=== PATIENT | male | born 1960 ===

== ENCOUNTER → 2020-03-03 13:36 | Outpatient (BNVA) | payer MEDICARE, MEDICAID, SELFPAY | PROVIDERS: PCP Internal Medicine; Referring Provider Internal Medicine; Visit Provider Internal Medicine | DX: I25.10 Atherosclerotic heart disease of native coronary artery without angina pectoris (principal); I10 Essential (primary) hypertension; E78.2 Mixed hyperlipidemia; F17.200 Nicotine dependence, unspecified, uncomplicated; I25.2 Old myocardial infarction; Z95.5 Presence of coronary angioplasty implant and graft; Z71.6 Tobacco abuse counseling; Z79.82 Long term (current) use of aspirin; Z79.899 Other long term (current) drug therapy | CPT/HCPCS: 99214 ==

== ENCOUNTER 2020-06-29 12:42 | Emergency (ER) | payer MEDICARE, MEDICAID, SELFPAY ==
[2020-06-29 12:43] VITALS: BP 150/90; RESP 18; TEMP 36.7; BMI 32.1
--- NOTE | 2020-06-29 13:52 | XR_ITS ---
EXAMINATION: XR FOOT, LEFT CLINICAL INFORMATION: Left foot pain. COMPARISON: None TECHNIQUE: AP, lateral, and oblique views of the left foot. FINDINGS: There is no acute fracture or dislocation. The tarsal bones are normally aligned. There is a small plantar calcaneal spur. The soft tissues are unremarkable. XR/XR foot LT 2V IMPRESSION: Small degenerative plantar calcaneal spur. Mild soft tissue swelling. No acute abnormality.
--- NOTE | 2020-06-29 13:52 | XR_ITS ---
EXAMINATION: XR ANKLE, LEFT CLINICAL INFORMATION: Ankle pain. COMPARISON: None TECHNIQUE: AP, lateral, and mortise views of the left ankle. FINDINGS: There is no acute fracture or dislocation. The tarsal bones are normally aligned. There is a small plantar calcaneal spur. The soft tissues are unremarkable. XR/XR ankle LT min 3V IMPRESSION: Small degenerative plantar calcaneal spur.
--- NOTE | 2020-06-29 13:52 | XR_ITS ---
EXAMINATION: XR LUMBOSACRAL SPINE CLINICAL INFORMATION: Low back pain radiating down leg COMPARISON: Previous x-ray March 2014 TECHNIQUE: Three views of the lumbosacral spine. FINDINGS: Bone alignment is normal. No fracture or dislocation is seen. There is multilevel degenerative spondylosis. There is mild degenerative disc disease at L2-L3. There is lower lumbar spine facet arthritis. XR/XR lumbar spine 2-3V IMPRESSION: Degenerative changes.
--- NOTE | 2020-06-29 13:54 | PC.NURSE ---
ASSISTED PROVIDER WITH RECTAL EXAM. PT TOLERATED PROCEDURE WELL.
--- NOTE | 2020-06-29 14:11 | ED_ITS ---
HPI - General Adult General Chief complaint: Extremity Problem Stated complaint: L FOOT NUMBNESS Source: patient Mode of arrival: ambulatory Limitations: no limitations History of Present Illness HPI narrative: Patient presents to ED for left foot numbness and pain for the past 3 days. Patient denies any recent trauma, slurred speech, loss of vision, paralysis of extremities, coughing, fever, chills, dizziness, chest pain, shortness of breath, or headache. Patient states history of severe sciatica with back pain radiating down leg with the past 3 days with left foot numbness. Patient denies any urinary/bowel incontinence. Patient denies inability to walk. Patient denies any dragging of feet. Related Data Home Medications Medication Instructions Recorded Confirmed albuterol sulfate 90 mcg/actuation INHALATION 03/03/20 03/03/20 aerosol inhaler aspirin 81 mg tablet,delayed 81 mg PO DAILY 03/03/20 03/03/20 release atorvastatin 80 mg tablet 80 mg PO BEDTIME 03/03/20 03/03/20 lisinopril 2.5 mg tablet 2.5 mg PO DAILY 03/03/20 03/03/20 metoprolol succinate 50 mg 50 mg PO DAILY 03/03/20 03/03/20 tablet,extended release 24 hr tiotropium bromide 2.5 INHALATION 03/03/20 03/03/20 mcg/actuation mist for inhalation Previous Rx's Medication Instructions Recorded oxycodone-acetaminophen [Percocet] 1 tab PO TID PRN #9 tab 06/29/20 prednisone 40 mg PO DAILY #10 tab 06/29/20 Allergies Allergy/AdvReac Type Severity Reaction Status Date / Time codeine [CODEINE] Allergy Unknown STOMACH Unverified 02/13/20 14:43 UPSET Review of Systems Review of Systems: Yes all other systems are reviewed and are negative Constitutional: Constitutional: Reports as per HPI and Reports no additional constitutional complaints Eyes: Eyes: Reports as per HPI and Reports no additional eye complaints ENT: Reports system reviewed and no additional complaints, except as documented and Reports as per HPI Cardiovascular: Cardiovascular: Reports as per HPI and Reports no additional cardiovascular complaints Respiratory: Respiratory: Reports as per HPI and Reports no additional respiratory complaints Gastrointestinal: Gastrointestinal: Reports as per HPI and Reports no additional gastrointestinal complaints Musculoskeletal: Musculoskeletal: Reports no additional musculoskeletal complaints, Reports as per HPI and Reports back pain Comments: Left foot/ankle pain/numbness Neurologic: Reports system reviewed and no additional complaints, except as documented and Reports as per HPI Psychiatric: Psychiatric: Reports no additional psychiatric complaints and Reports as per HPI [facility] Past Medical History Medical History Atherosclerotic cardiovascular disease COPD (chronic obstructive pulmonary disease) Essential hypertension Mixed hyperlipidemia Smoking Surgical History History of cardiac catheterization Stented coronary artery Family History Family History Father Hypertension Coronary artery disease Mother No problems noted. Social History Social History (Updated 03/03/20 @ 14:01 by JANETTE Estrada) Smoking Status: Current every day smoker Packs Per Day: 1 Cigarettes Per Day: 20.0 Advance Directives: No Advance Directives Information Provided: Yes Physical Exam Vital Signs: Vital Signs: Last Vital Signs Temp 98.1 F 06/29/20 12:43 Resp 18 06/29/20 12:43 BP 150/90 H 06/29/20 12:43 Body Mass Index 32.1 Const: General: cooperative, healthy appearing, comfortable, no acute distress, well developed, alert, awake and Physically active HENMT: Head: Yes normal to inspection, Yes No palpable skull fracture present, Yes normocephalic, Yes atraumatic and Yes abrasion Eyes: General: appearance normal, both eyes and all related structures Neck: Neck: Yes normal visual inspection, Yes full ROM, Yes no lymphadenopathy, Yes no meningeal signs, Yes trachea midline, Yes supple and No tender Chest: Chest palpation & inspection: normal inspection of the chest and normal palpation of entire chest wall Resp: Effort & Inspection: normal respiratory effort and able to speak in complete sentences Auscultation: clear to auscultation bilaterally Cardio: Jugular venous distension: no JVD Heart sounds: S1 normal heart sound present and S2 normal heart sound present GI: Inspection: Yes normal to inspection and No abdominal wall ecchymosis Palpation (GI): Soft to palpation, not firm, nontender, no guarding and not rigid : General: No CVA tenderness and Yes no CVA tenderness Back/Spine/Pelvis: Other: Rectal exam shows great anal sphincter tone around my finger. Patient has good perineum saddle sensation Back: no CVA tenderness, No CVA tenderness and back tenderness (Positive for lumbar/sacral tenderness on palpation) Skin: General skin exam: no rashes or lesions noted and elasticity normal Neuro: Other: Negative for slurred speech. Negative for facial droop. Negative pronator drift. Negative for foot dragging or footdrop on ambulation. All extremities strength is equal and intact. General: gait normal, no meningeal signs and CN's II-XI intact bilaterally Extrem: Other: Left lower extremity; negative for bluish/red discoloration of ankles/foot/leg/thigh. Left lower extremity has normal temperature. Positive for palpable pulses on feet. Negative for any wounds/ulcers on the feet. NEgative for any calf pain. Right lower extremity: normal. motor/neuro/fast exam is intact. Both extremities motor, neuro, and vascular exam is intact. Psych: Appearance: grossly normal, well kempt and not disheveled Course Course Course Narrative: Physical exam does not indicate cord compression. Patient has good anal tone and negative for urinary/bowel incontinence. Patient able to tell me which toe I was touching on his left lower extremity. Patient states back pain radiating down leg. Sciatica exacerbation patient's last x-ray was 6 years ago. Patient will have x-ray, Toradol, and prednisone ordered. Due to history of smoking and cholesterol patient has head CTs to make sure there is no stroke although very unlikely and patient is already out the window if it is a stroke. No indication for emergent spine MRI. Once again not suspecting cord compression or epidural abscess. Patient denies any drug use. Reevaluation(s) Reevaluation #1: Patient foot x-ray positive for plantar calcaneal spur. Lumbar x-ray positive for degenerative disc disease. Head CT negative for stroke. Patient educated that presently there is no emergent indication for MRI. Informed physical exam did not indicate cord compression or epidural abscess. Patient states he can follow-up outpatient PCP for outpatient MRI for nerve impingement if necessary by PCP. Physical exam does not indicate DVT or arterial occlusion. Head CT shows meningioma and patient made aware this. Patient will follow-up with PCP. patient states he takes percocet in the past without any reaction Time: 15:16 Medical Decision Making MDM Narrative Medical decision making narrative: Sciatica. Degenerative disc disease Discharge Plan Discharge Clinical Impression: Degenerative disc disease at L5-S1 level, Sciatica, Heel spur Patient Disposition: Home, Self-Care Instructions: Sciatica (ED), Lumbar Radiculopathy (ED), Degenerative Disc D isease (ED), Heel Spur (ED) Additional Instructions: Return to the ED immediately for worsening back pain, dragging of lower extremity, foot drop, urinary/bowel incontinence, slurred speech, loss of vision, headache, dizziness, fever, chills, abdominal pain, paralysis of extremities, or any other concerning symptoms. Head CT scan negative for stroke. Lumbar x-ray positive for degenerative disc disease. Head CT scan positive for benign meningioma. Ankle and foot x-ray positive for calcaneal spur. Please follow-up with PCP for outpatient MRI of spine. Prescriptions: New prednisone 20 mg tablet 40 mg PO DAILY Qty: 10 RF: 0 oxycodone-acetaminophen [Percocet] 5-325 mg tablet 1 tab PO TID PRN (Reason: pain) Qty: 9 RF: 0 No Action atorvastatin 80 mg tablet 80 mg PO BEDTIME RF: 0 aspirin 81 mg tablet,delayed release (DR/EC) 81 mg PO DAILY RF: 0 metoprolol succinate 50 mg tablet extended release 24 hr 50 mg PO DAILY RF: 0 lisinopril 2.5 mg tablet 2.5 mg PO DAILY RF: 0 albuterol sulfate 90 mcg/actuation HFA aerosol inhaler inhalation RF: 0 Spiriva Respimat 2.5 mcg/actuation mist inhalation RF: 0 Interventions: ED Discharge Assessment Last Done: 06/29/20 15:50 Discharge Date/Time: 06/29/20 15:51
--- NOTE | 2020-06-29 14:12 | CT_ITS ---
EXAMINATION: CT HEAD WITHOUT CONTRAST CLINICAL INFORMATION: Foot numbness. COMPARISON: None TECHNIQUE: Contiguous axial imaging was performed from the skull base to vertex without intravenous administration of contrast. This CT examination was performed using dose optimization techniques as appropriate, variously including the following: *Automated exposure control *Adjustment of mA and/or kV according to patient size (this includes techniques or standardized protocols for targeted exams where dose is matched to indication/reason for exam; i.e. extremities or head) *Use of iterative reconstruction technique DLP: 751 mGy-cm FINDINGS: There is no evidence of acute intracranial hemorrhage or territorial infarction. No abnormal mass effect or midline shift is seen. Desai to white matter differentiation is well preserved. No extra-axial fluid collections are identified. There is small right parafalcine calcified 6 mm lesion likely calcified meningioma. There is no mass effect or The ventricles are normal in size. There is no abnormal attenuation within the brain parenchyma. The osseous structures and soft tissues are normal. The mastoid air cells and visualized portions of the paranasal sinuses are well aerated. CT/CT head/brain wo con IMPRESSION: No acute intracranial process seen. There is a 6 mm right parafalcine likely calcified meningioma.
[2020-06-29] MEDS: predniSONE 20 MG TABLET 60 MG PO (14:14)
[2020-06-29] MEDS: Ketorolac Tromethamine 30 MG/ML VIAL IM (14:14)
== END 2020-06-29 15:51 | disposition home or self-care (01) ==
PROVIDERS: Emergency Provider Emergency Medicine
DX: M51.17 Intervertebral disc disorders with radiculopathy, lumbosacral region (principal); M77.32 Calcaneal spur, left foot; I10 Essential (primary) hypertension; F17.210 Nicotine dependence, cigarettes, uncomplicated
CPT/HCPCS: 70450; 72100; 73610; 73620; 96372; 99283; 99284; J1885

== ENCOUNTER 2020-07-15 19:27 | Outpatient (REF) | payer MEDICARE, MEDICAID, SELFPAY ==
--- NOTE | ~2020-07-15 | MR_ITS ---
EXAMINATION: MR LUMBAR SPINE WITHOUT CONTRAST CLINICAL INFORMATION: Lumbago with sciatica left side. COMPARISON: Plain films of the lumbar spine 06/29/2020. TECHNIQUE: MRI of the lumbar spine was obtained using routine sequences without contrast. FINDINGS: VERTEBRAL BODIES AND PARASPINAL STRUCTURES: There is straightening of the normal lumbar lordosis, with a mild retrolisthesis of L2 on L3. There is narrowing of intervertebral disc height with loss of signal at L2-L3, L3-L4 and L4-L5. Vertebral body heights are maintained and there are no acute fractures. There are degenerative endplate contour changes at multiple levels. Fatty endplate signal changes are seen at L2-L3 anteriorly and at L3-L4 and L4-L5 posteriorly. Overall, marrow signal is homogenous. The infrarenal abdominal aorta is slightly ectatic, and has a caliber of 2.4 cm just proximal to the bifurcation. The visualized pelvic structures are unremarkable. CONUS MEDULLARIS AND CAUDA EQUINA: Normal, terminating at the level of L1. The lower thoracic spinal cord appears normal. The cauda equina nerve roots and filum terminale appear normal. SPINAL LEVELS: L1-L2: There is mild bilateral facet arthropathy. Disc contour is normal. There is no central stenosis and the neural foramina are patent. L2-L3: There is mild to moderate bilateral facet arthropathy. There is a broad-based posterior disc protrusion extending into the inferior neural foramina bilaterally without definite exiting nerve root impingement. However, there is narrowing of the bilateral subarticular recesses, with likely impingement on the traversing L3 nerve roots. There is moderate central stenosis. L3-L4: There is moderate bilateral facet arthropathy. There is a broad-based posterior disc protrusion with an extruded component extending behind the body of L4 just to the right of midline. There is narrowing of the bilateral subarticular recesses, and there is likely impingement on the traversing L4 nerve roots. There is moderate central stenosis. L4-L5: There is severe bilateral facet arthropathy with ligamenta flava hypertrophy and facet joint effusions. There is an extruded disc component extending caudad behind the body of L5 on the left, with narrowing of the left subarticular recess and compression and posterior displacement of the traversing left L5 nerve root. There are small inferior foraminal disc protrusions without definite exiting nerve root impingement. There is mass effect on the thecal sac and there is moderate to severe central stenosis. L5-S1: There is severe bilateral facet arthropathy. The extruded component from the L4-L5 intervertebral disc extends into the left subarticular recess, and displaces the traversing left S1 nerve root posteriorly. There is narrowing of the left lateral recess of L4. There is also distortion of the ventral thecal sac. There is no central stenosis. MR/MR lumbar spine wo con IMPRESSION: 1. There is severe facet arthropathy at L4-L5 and there is a large extruded disc component extending caudad on the left behind the body of L5, the left subarticular recess at L5-S1 and into the left lateral recess of L5. There is mass effect on the traversing L5 and S1 nerve roots on the left. There is moderate to severe central stenosis at L4-L5. 2. At L3-L4 there is a posterior disc protrusion with a small extruded component behind the body of L4. The bilateral subarticular recesses with likely impingement on the traversing L4 nerve roots. There is moderate central stenosis. 3. At L2-L3 there is a broad-based posterior disc protrusion, with narrowing of the bilateral subarticular recesses with impingement on the traversing L3 nerve roots. There is moderate central stenosis.
== END 2020-07-15 19:28 | disposition home or self-care (01) ==
LOC: HO.MRI 19:27
PROVIDERS: Visit Provider Nurse Practitioner Primary Care
DX: M54.42 Lumbago with sciatica, left side (principal)
CPT/HCPCS: 72148

== ENCOUNTER 2020-08-07 07:25 | Outpatient (REF) | payer MEDICARE, MEDICAID, SELFPAY ==
--- NOTE | ~2020-08-07 | CT_ITS ---
EXAMINATION: CT CHEST SCREENING CLINICAL INFORMATION: Nicotine dependence. COMPARISON: CT chest 07/01/2019 TECHNIQUE: Multidetector volumetric CT imaging of the chest is performed without contrast using low dose technique. Additional 2D coronal and sagittal reformatted images and axial 3D maximum intensity projection (MIP) images are generated on the CT workstation. This CT examination was performed using dose optimization techniques as appropriate, variously including the following: *Automated exposure control *Adjustment of mA and/or kV according to patient size (this includes techniques or standardized protocols for targeted exams where dose is matched to indication/reason for exam; i.e. extremities or head) *Use of iterative reconstruction technique DLP: 83 mGy-cm FINDINGS: LUNGS: The lungs are well expanded without any acute pneumonic process. There is a 2 mm nodule left lower lobe adjacent to the major fissure axial image 309/6, stable. No additional pulmonary nodules seen. Mild plate-like atelectatic changes as seen in the right middle lobe. MEDIASTINUM: The thyroid lobes are symmetric and normal. The central trachea and the bronchi are widely patent. The heart size and the great vessels are normal caliber. No abnormal size mediastinal or hilar lymph nodes seen. There are coronary artery calcifications present. PLEURA: There is no pleural effusion. No pleural mass or thickening. AXILLA: No lymphadenopathy. UPPER ABDOMEN: Visualized liver, spleen, pancreas and bilateral adrenal glands are unremarkable. OSSEOUS STRUCTURES: No lytic or sclerotic process seen. CT/CT lung screening IMPRESSION: Stable 2 mm nodule left lower lobe. Coronary artery calcification. ASSESSMENT: Lung-RADS category 2: Benign RECOMMENDATION: Low dose annual CT chest.
== END 2020-08-07 07:26 | disposition home or self-care (01) ==
LOC: HO.CT 07:25
PROVIDERS: Visit Provider Physician Assistant Medical
DX: Z12.2 Encounter for screening for malignant neoplasm of respiratory organs (principal); F17.210 Nicotine dependence, cigarettes, uncomplicated
CPT/HCPCS: 71271

== ENCOUNTER 2020-09-10 10:00 | Outpatient (RCR) | payer MEDICARE, MEDICAID, SELFPAY | END 2020-11-24 08:00 | disposition home or self-care (01) | LOC: HO.PT 10:00 | PROVIDERS: PCP Nurse Practitioner Family; Visit Provider Physician Assistant | DX: M54.5 Low back pain (principal); M51.36 Other intervertebral disc degeneration, lumbar region; Z98.890 Other specified postprocedural states | CPT/HCPCS: 97110; 97112; 97162; 97530 ==

== ENCOUNTER 2020-12-03 06:05 | Outpatient (REF) | payer MEDICARE, MEDICAID, SELFPAY ==
[2020-12-03 06:38] LABS: MANUAL DIFF FLAG NO
[2020-12-03 06:41] LABS: Basophils Percent Auto 0.4 % (0-2); Eosinophils Absolute Auto 0.1 X10*3/uL (0.0-0.4); Eosinophils Percent Auto 1.9 % (0-4); Hematocrit 48.2 % (42-52); Hemoglobin 16.4 g/dl (14.0-18.0); Imm Gran Abs Auto 0.07 X10*3/uL (0.00-0.03); Imm Gran Pct Auto 0.9 % (0.0-0.4); Lymphocytes Absolute Auto 2.1 X10*3/uL (1.2-4.9); Lymphocytes Percent Auto 27.9 % (20-40); Mean Corpuscular Hemoglobin 31.4 pg (27.0-33.0); Mean Corpuscular Volume 92.2 fL (80-98); Mean Platelet Volume 9.3 fL (9.4-12.4); Monocytes Absolute Auto 0.5 X10*3/uL (0.1-1.2); Monocytes Percent Auto 7.2 % (2-11); Neutrophils Absolute Auto 4.7 X10*3/uL (2.0-8.3); Neutrophils Percent Auto 61.7 % (45-73); Platelet Count 226 X10*3/uL (160-400); Red Blood Count 5.23 X10*6/uL (4.60-5.80); Red Cell Distribution Width 12.9 % (11.0-16.0); White Blood Count 7.6 X10*3/uL (4.8-10.8)
[2020-12-03 07:09] LABS: Alanine Aminotransferase 24 U/L (0-40); Alkaline Phosphatase 128 U/L (39-117); Anion Gap 11 (12-20); Aspartate Amino Transferase 14 U/L (5-37); Bilirubin Direct 0.2 mg/dL (0.0-0.5); Bilirubin Total 0.5 mg/dL (0.0-1.0); Blood Urea Nitrogen 7 mg/dL (9-16); Calcium 9.1 mg/dL (8.4-10.2); Carbon Dioxide 28 mmol/L (22-29); Chloride 106 mmol/L (96-108); Cholesterol 118 mg/dL; Estimated Glomerular Filt Rate > 60; Glucose Random 108 mg/dL (60-115); HDL Cholesterol 37 mg/dL; LDL Cholesterol Calculated 59 mg/dl; Potassium 4.4 mmol/L (3.3-5.1); Sodium 141 mmol/L (135-145); Total Protein 6.3 g/dL (6.5-8.0); Triglycerides 114 mg/dL
[2020-12-03 07:52] LABS: Glucose Urine UA NEG (NEG); Leukocyte Esterase Urine NEG (NEG); Nitrite Urine NEG (NEG); PH 5.5 (5.0-8.0); Specific Gravity - Urine >= 1.030 (1.005-1.025); Urine Blood TRACE (NEG); Urine Ketones NEG (NEG); Urine Protein NEG (NEG-TRACE)
[2020-12-03 07:53] LABS: Appearance Urine CLEAR; Color Urine YELLOW
[2020-12-03 08:11] LABS: RBC Urine 0-2 /HPF (0); Squamous Epithelial Cell Urine TRACE /LPF; WBC Urine 0-2 /HPF (0-4)
[2020-12-03 08:12] LABS: Calcium Oxalate Crystals Urine TRACE /LPF
[2020-12-03 08:48] LABS: Microalbum/Creatinine Ratio Ur 6.9 ug/mg cr
[2020-12-03 08:49] LABS: Amphetamine Screen Urine Not Detected (Not Detect); Barbiturates, Urine Not Detected (Not Detect); Benzodiazepines Screen Urine Not Detected (Not Detect); Cannabinoid Screen Urine POSITIVE (Not Detect); Cocaine Screen Urine Not Detected (Not Detect); Opiate Screen Urine Not Detected (Not Detect); Phencyclidine Screen Urine Not Detected (Not Detect)
[2020-12-03 08:51] LABS: Prostate Specific Antigen 1.23 ng/mL (<0.05-4.0); TSH reflex Free T4 0.59 uIU/mL (0.32-4.0); Vitamin D 25-OH Total 18.5 ng/mL (>30)
[2020-12-03 10:53] LABS: CT PCR NOT DETECTED (Not Detect.); NG PCR NOT DETECTED (Not Detect.)
[2020-12-03 11:53] LABS: ~HepC Num1 0.04 S/CO (0.00-0.79); ~Hepatitis C Antibody Nonreactive (Nonreactive)
[2020-12-03 11:56] LABS: HBc Num1 0.06 S/CO (0.00-0.79); HBsAGNum1 0.18 S/CO (0.00-0.99); HIV AB/AG Nonreactive (Nonreactive); HIV Num 1 0.07 S/CO (0.00-0.99); Hepatitis B Core Antibody Nonreactive (Nonreactive); Hepatitis B Surface Antigen Negative (Negative)
[2020-12-04 07:42] LABS: Syphilis Screen Nonreactive (Nonreactive)
[2020-12-04 08:20] LABS: Hepatitis A Antibody IgG REACTIVE (Nonreactive); ~Hepatitis A Antibody IgG 11.35 S/CO (0.00-0.99)
[2020-12-04 11:11] LABS: HBS Num1 0.35 mIU/mL (0-7.99); ~Hepatitis B Surface Antibody NONREACTIVE (Nonreactive)
== END 2020-12-03 06:06 | disposition home or self-care (01) ==
LOC: HO.LAB 06:05
PROVIDERS: PCP Nurse Practitioner Family; Visit Provider Nurse Practitioner Family
DX: Z01.84 Encounter for antibody response examination (principal); Z12.5 Encounter for screening for malignant neoplasm of prostate; Z11.59 Encounter for screening for other viral diseases; Z11.4 Encounter for screening for human immunodeficiency virus [HIV]; Z11.3 Encounter for screening for infections with a predominantly sexual mode of transmission; D49.7 Neoplasm of unspecified behavior of endocrine glands and other parts of nervous system; J44.9 Chronic obstructive pulmonary disease, unspecified; I10 Essential (primary) hypertension; M47.816 Spondylosis without myelopathy or radiculopathy, lumbar region
CPT/HCPCS: 80048; 80061; 80076; 80307; 81001; 82043; 82306; 84153; 84443; 85025; 86481; 86704; 86706; 86708; 86780; 86803; 87340; 87389; 87491; 87591

== ENCOUNTER → 2021-03-01 08:25 | Outpatient (REF) | payer MEDICARE, MEDICAID, SELFPAY ==
--- NOTE | 2021-03-01 08:29 | CA_ITS ---
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 The calculated ejection fraction is 69% by biplane method. - No obvious valvular pathology seen on this study. Findings Left Ventricle Normal left ventricular cavity size. There is mildly increased left ventricular wall thickness. The left ventricular systolic function is normal. The calculated ejection fraction is 69% by biplane method. There is no evidence of regional wall motion abnormalities. Diastolic function is normal for age. Right Ventricle Normal right ventricular cavity size and systolic function. Atria Both atria are normal in size. Aortic Valve There is a normal trileaflet aortic valve. There is mild calcification of the aortic valve. There is no aortic valve stenosis. There is no aortic valve regurgitation. Mitral Valve The mitral valve appears normal. There is no mitral valve regurgitation. There is no mitral valve stenosis. Pulmonic Valve The pulmonic valve was not well visualized. Tricuspid Valve Normal tricuspid valve structure. There is no tricuspid valve regurgitation. The pulmonary artery systolic pressure is normal. Great Vessels The aortic annulus, sinuses of valsalva, and asc aorta are normal in size. Venous The inferior vena cava is normal in size and collapses greater than 50% with inspiration. Pericardium/Pleural There is no evidence of pericardial effusion. Prior Study Comparison No significant change compared to prior study dated: 09/27/2016. Recommendations, Care & Conclusions No obvious valvular pathology seen on this study. Measurements 2D Linear Measurements IVSd: 1.25 0.6-0.9/0.6-1.0 cm LVIDd: 4.60 3.9-5.3/4.2-5.9 cm LVIDd Index: 2.19 2.4-3.2/2.2-3.1 cm/m2 LVIDs: 2.86 2.0-3.6 cm LVPWd: 1.26 0.7-1.1 cm Ao Root: 3.60 2.1-3.5 cm LA Diam: 3.50 2.7-3.8/3.0-4.0 cm LAIDs Index: 1.67 1.5-2.3 cm/m2 LV Mass: 272.57 67-162/88-224 g LV Mass Index: 129.80 43-95/49-115 g/m2 LVOT Diam: 2.10 3.0+(-)1.3 cm 2D Systolic Function EF 4C: 61.40 >55% EF 2C: 75.80 >55% EF BiP: 68.60 >55% Mitral Valve MV Pk E: 0.79 MV PK A: 0.75 MV Decel Time: 248.00 E/A: 1.10 E'Lateral: 10.30 E'Medial: 9.68 E/E' Med: 8.20 E/E' Lat: 7.70 PHT: 73.00 MVA PHT: 3.01 Decel Power: 3.20 Aortic Valve AoV Pk Missael: 1.46 AoV Mn Missael: 0.93 AoV VTI: 0.33 AoV Pk Grad: 9.00 Aov Mn Grad: 4.00 IRASEMA Cont.VTI: 2.72 LVOT LVOT Pk Missael: 1.05 LVOT Mn Missael: 0.75 LVOT VTI: 0.26 LVOT Pk Grad: 4.00 LVOT Mn Grad: 3.00 LVOT Diam: 2.10 LVOT Area: 3.46 Diastolic Function MV Pk E: 0.79 MV Pk A: 0.75 E/A: 1.10 E'Medial: 9.68 E/E' Med: 8.20 E' Laterial: 10.30 E/E' Lat: 7.70 Right Ventricle TAPSE (mm): 28.00 TVS' Missael: 15.00 Tricuspid Valve TR Pk Missael: 1.59 TR Pk Grad: 10.00 Great Vessels Aorta Ao Root-2D: 3.60 2.0-3.7 cm Pulmonary Valve PV Pk Missael: 0.92 Peak PV Grad: 3.00 Updated in Other Vendor System with Status of Final Yeison Rashid MD electronically signed on 03/01/2021 9:46:36 AM with status of Final
== END ==
LOC: HO.CARD 08:25
PROVIDERS: PCP Nurse Practitioner Family; Visit Provider Internal Medicine
DX: I25.10 Atherosclerotic heart disease of native coronary artery without angina pectoris (principal)
CPT/HCPCS: 93306

== ENCOUNTER → 2021-03-03 13:22 | Outpatient (BNVA) | payer MEDICARE, MEDICAID, SELFPAY | PROVIDERS: PCP Nurse Practitioner Family; Referring Provider Nurse Practitioner Family; Visit Provider Internal Medicine | DX: I25.10 Atherosclerotic heart disease of native coronary artery without angina pectoris (principal); I10 Essential (primary) hypertension; E78.2 Mixed hyperlipidemia; F17.200 Nicotine dependence, unspecified, uncomplicated; Z95.5 Presence of coronary angioplasty implant and graft | CPT/HCPCS: 93005; 99212 ==

== ENCOUNTER → 2022-03-03 10:00 | Outpatient (BNVA) | payer OTHER, SELFPAY | PROVIDERS: PCP Nurse Practitioner Family; Referring Provider Nurse Practitioner Family; Visit Provider Internal Medicine | DX: I25.10 Atherosclerotic heart disease of native coronary artery without angina pectoris (principal); I10 Essential (primary) hypertension; E78.2 Mixed hyperlipidemia; F17.210 Nicotine dependence, cigarettes, uncomplicated | CPT/HCPCS: 93005; 99212 ==

== ENCOUNTER 2022-07-11 05:46 | Emergency (ER) | payer OTHER, SELFPAY ==
--- NOTE | ~2022-07-11 | CT_ITS ---
EXAMINATION: CT ABDOMEN AND PELVIS WITHOUT CONTRAST CLINICAL INFORMATION: Right flank pain COMPARISON: None TECHNIQUE: Multidetector volumetric imaging was performed from the superior aspect of the liver through the pubic symphysis. Sagittal and coronal reformatted images were obtained on the technologist's workstation. This CT examination was performed using dose optimization techniques as appropriate, variously including the following: *Automated exposure control *Adjustment of mA and/or kV according to patient size (this includes techniques or standardized protocols for targeted exams where dose is matched to indication/reason for exam; i.e. extremities or head) *Use of iterative reconstruction technique DLP: 613 mGy-cm FINDINGS: LUNG BASES: The visualized lung bases are unremarkable. LIVER, GALLBLADDER, AND BILIARY TREE: The liver is normal in size, shape, and attenuation. No focal hepatic lesion or biliary ductal dilatation is present. The gallbladder is unremarkable with no evidence of radiopaque gallstones, gallbladder wall thickening, or obvious pericholecystic inflammatory changes. PANCREAS: Unremarkable. SPLEEN: Unremarkable. ADRENAL GLANDS: Unremarkable. KIDNEYS AND URETERS: Right hydronephrosis from a 4 mm right EJ stone. Right perinephric fat stranding. This is probably related to backflow of urine. Differential would include infection. Normal left kidney. BLADDER: Unremarkable. GASTROINTESTINAL TRACT: The small and large bowel are unremarkable. The appendix is unremarkable. ABDOMINAL WALL: Small umbilical hernia containing fat. LYMPH NODES: Normal. VASCULAR: Atherosclerotic disease. PELVIC VISCERA: Unremarkable. OSSEOUS STRUCTURES: Degenerative changes of the spine and hip joints. CT/CT abdomen pelvis wo IV con IMPRESSION: Mild right hydronephrosis from a 4 mm right UPJ stone. Significant right perinephric fat stranding. This is probably related to plaque flow of urine. Differential would include infection. Clinical correlation recommended. Fleischner guidelines were followed.
[2022-07-11 06:06] VITALS: BP 151/85; PULSE 63; RESP 21; TEMP 36.4; O2SAT 94; BMI 31.9
[2022-07-11 06:13] VITALS: BP 151/85; PULSE 63; RESP 21; TEMP 36.4; O2SAT 95
[2022-07-11] MEDS: 0.9 % Sodium Chloride 1,000 ML 999 ML IV (06:53)
--- NOTE | 2022-07-11 06:55 | ED.ABDPAIN ---
HPI - Abdominal Pain General Chief Complaint: Abdominal Pain Stated Complaint: right sided pain Time Seen by Provider: 07/11/22 06:44 Source: patient Mode of arrival: ambulatory Limitations: no limitations History of Present Illness HPI narrative: 62 yo male with PMH of COPD and HTN presents with R flank pain radiating to groin with n/v all night. He has able to urinate. No prior hx of this in the past. No recent trauma. He feels the pain is deep inside. He denies diarrhea. took motrin without relief. MD elicited complaint: flank pain Pertinent past history: none Onset (ago): hour(s) (6) Pain Consistency: constant Location: R flank Severity: severe Quality: stabbing Radiation: RLQ Migration to: R flank Exacerbating factors: nothing Relieving factors: nothing Associated symptoms: nausea and vomiting Related Data Home Medications Medication Instructions Recorded Confirmed albuterol sulfate 90 mcg/actuation inhalation 03/03/20 03/03/22 aerosol inhaler aspirin 81 mg tablet,delayed 81 mg PO DAILY 03/03/20 03/03/22 release metoprolol succinate 50 mg 50 mg PO DAILY 03/03/20 03/03/22 tablet,extended release 24 hr tiotropium bromide 2.5 inhalation 03/03/20 03/03/22 mcg/actuation mist for inhalation ipratropium bromide 17 inhalation 03/03/21 03/03/22 mcg/actuation HFA aerosol inhaler (Atrovent HFA) Previous Rx's Medication Instructions Recorded atorvastatin 80 mg tablet 80 mg PO DAILY #90 tabs 03/15/21 morphine 15 mg immediate release 15 mg PO Q4H PRN pain #15 tabs 07/11/22 tablet ondansetron 4 mg disintegrating 4 mg PO Q8H PRN nausea and 07/11/22 tablet vomiting #20 tabs tamsulosin 0.4 mg capsule 0.4 mg PO DAILY 7 days #7 caps 07/11/22 Allergies Allergy/AdvReac Type Severity Reaction Status Date / Time codeine [CODEINE] Allergy Unknown STOMACH Verified 03/03/22 10:06 UPSET Review of Systems Review of Systems Constitutional : No Weight loss, No Fever, No Chills ENT/Mouth : No sore throat, No Rhinorrhea Eyes: No Swelling, No Redness Cardiovascular : No Chest Pain, No SOB, NoEdema Respiratory : No Cough, No Sputum, No Wheezing Gastrointestinal : Positive Nausea, Positive Vomiting, no Diarrhea, positive abdominal Pain, No Hematochezia, No Melena Genitourinary : No Dysuria, No Urinary Frequency, No Hematuria, No Urgency Musculoskeletal : No joint pain, No Myalgias, No Joint Swelling Skin : No Skin Lesions, No rash Neuro : No Weakness, No Numbness, No Dizziness, No Headache Psych : No Anxiety/Panic, No Depression Heme/Lymph: No Bruising, No Lymphadenopathy Endocrine : No Polyuria, No Polydipsia All other systems reviewed and are negative. [facility] Past Medical History Attestation statement: The following information was validated with the patient. Medical History Atherosclerotic cardiovascular disease COPD (chronic obstructive pulmonary disease) Essential hypertension Mixed hyperlipidemia Smoking Surgical History History of cardiac catheterization Stented coronary artery Family History Family History Father Hypertension Coronary artery disease Mother No problems noted. Social History Social History Alcohol intake: never Patient Tobacco Use Status: Current everyday Tobacco user Cigarette Packs Per Day: 1 Cigarettes Per Day: 20.0 Years Smoked: 50 +/- Smoked in Last 30 Days: Yes Use of substances other than those prescribed or required for medical reasons: No Substance Use Type: Marijuana Substance Use Type Other:: per pt medical marijuana card Advance Directives: No Advance Directives Information Provided: No Physical Exam ED Vital Signs: Vital Signs - 24 hr 07/11/22 06:06 07/11/22 06:13 Temperature 97.5 F 97.5 F Pulse Rate 63 63 Respiratory Rate 21 H 21 H Blood Pressure 151/85 H 151/85 H Pulse Oximetry 94 95 Oxygen Delivery Method Room Air Room Air BMI result Body Mass Index 31.9 Appearance: Alert. Oriented X3. No acute distress. Eyes: Pupils equal, round and reactive to light. ENT: Pharynx normal. Neck: Normal inspection. Neck supple. CVS: Normal heart rate and rhythm. Pulses normal. Respiratory: No respiratory distress. Breath sounds normal. Abdomen: Soft and nontender. mild ttp along R flank but feels pain is deep inside Skin: Skin warm and dry. Normal skin color. Normal skin turgor. Extremities: No lower extremity edema. No calf ttp Neuro: Oriented X 3. No motor deficit. No sensory deficit. Course Course Course Narrative: mild hydronephrosis, pain well controlled, feels much better and eager to leave - can follow up with urology outpatient once urine resulted ua not infected stable for DC Medical Decision Making Medical Decision Making [facility] Narrative: 62 yo male with PMH of COPD, HTN here with c/o non reproduceable R flank pain with n/v with benign abdominal exam - VS are stable. He is uncomfortable. At this time given presentation suspect renal colic vs UTI though more likely renal colic. He has a benign abdomen doubt AAA. He will need labs, UA, CT scan, IV dilaudid for pain. Dispo per results and findings. Differential Diagnosis Differential Diagnoses: The differential diagnosis associated with the presentation includes constipation, renal colic, UTI Lab Data [facility] Lab Attestation statement: I reviewed the patient's lab results. 07/11/22 06:56 07/11/22 06:56 Labs: Lab Results 07/11/22 07/11/22 07/11/22 Range/Units 06:56 06:56 08:12 WBC 15.3 H (4.8-10.8) X10*3/uL RBC 5.20 (4.60-5.80) X10*6/uL Hgb 16.1 (14.0-18.0) g/dl Hct 47.5 (42.0-52.0) % MCV 91.3 (80.0-98.0) fL MCH 31.0 (27.0-33.0) pg MCHC 33.9 (31.0-36.0) g/dl RDW 13.0 (11.0-16.0) % Plt Count 202 (160-400) X10*3/uL MPV 9.9 (9.4-12.4) fL Immature Gran % (Auto) 0.5 H (0.0-0.4) % Neut % (Auto) 86.7 H (45-73) % Lymph % (Auto) 8.6 L (20-40) % Daniels % (Auto) 3.9 (2-11) % Eos % (Auto) 0.1 (0-4) % Baso % (Auto) 0.2 (0-2) % Lymph # (Auto) 1.3 (1.2-4.9) X10*3/uL Daniels # (Auto) 0.6 (0.1-1.2) X10*3/uL Eos # (Auto) 0.0 (0.0-0.4) X10*3/uL Baso # (Auto) 0.0 (0.0-0.2) X10*3/uL Abs Immat Gran (auto) 0.08 H (0.00-0.03) X10*3/uL Absolute Neuts (auto) 13.2 H (2.0-8.3) x10*3/uL Absolute Nucleated RBC 0.000 (0.0-0.012) X10*3/uL Nucleated RBC % (auto) 0.0 (0.0-0.2) /100WBC Sodium 143 (135-145) mmol/L Potassium 4.0 (3.3-5.1) mmol/L Chloride 106 (96-108) mmol/L Carbon Dioxide 28 (22-29) mmol/L Anion Gap 13 (12-20) BUN 12 (9-16) mg/dL Creatinine 1.16 (0.5-1.4) mg/dL Estim Creat Clear Calc 74.8 Estimated GFR > 60 Random Glucose 133 H (60-115) mg/dL Calcium 9.5 (8.4-10.2) mg/dL Total Bilirubin 0.6 (0.0-1.0) mg/dL Direct Bilirubin 0.2 (0.0-0.5) mg/dL AST 16 (5-37) U/L ALT 25 (0-40) U/L Alkaline Phosphatase 116 (39-117) U/L Total Protein 6.2 L (6.5-8.0) g/dL Albumin 4.2 (3.5-5.0) g/dL Lipase 20 (8-78) U/L Urine Color Urine Appearance Urine pH (5.0-9.0) Ur Specific Melstone (1.005-1.025) Urine Protein (Neg-Trace) mg/dL Urine Glucose (UA) (Negative) mg/dL Urine Ketones (Negative) mg/dL Urine Blood (Negative) Urine Nitrite (Negative) Ur Leukocyte Esterase (Negative) Urine RBC (0-2) /HPF Urine WBC (0-5) /HPF Ur Squamous Epith Cells (0-2) /HPF Urine Bacteria (None Seen) Hyaline Casts (0-2) /LPF COVID-19 (MALIHA) Negative (Negative) COVID-19 Clin Com See Note 07/11/22 Range/Units 11:10 WBC (4.8-10.8) X10*3/uL RBC (4.60-5.80) X10*6/uL Hgb (14.0-18.0) g/dl Hct (42.0-52.0) % MCV (80.0-98.0) fL MCH (27.0-33.0) pg MCHC (31.0-36.0) g/dl RDW (11.0-16.0) % Plt Count (160-400) X10*3/uL MPV (9.4-12.4) fL Immature Gran % (Auto) (0.0-0.4) % Neut % (Auto) (45-73) % Lymph % (Auto) (20-40) % Daniels % (Auto) (2-11) % Eos % (Auto) (0-4) % Baso % (Auto) (0-2) % Lymph # (Auto) (1.2-4.9) X10*3/uL Daniels # (Auto) (0.1-1.2) X10*3/uL Eos # (Auto) (0.0-0.4) X10*3/uL Baso # (Auto) (0.0-0.2) X10*3/uL Abs Immat Gran (auto) (0.00-0.03) X10*3/uL Absolute Neuts (auto) (2.0-8.3) x10*3/uL Absolute Nucleated RBC (0.0-0.012) X10*3/uL Nucleated RBC % (auto) (0.0-0.2) /100WBC Sodium (135-145) mmol/L Potassium (3.3-5.1) mmol/L Chloride (96-108) mmol/L Carbon Dioxide (22-29) mmol/L Anion Gap (12-20) BUN (9-16) mg/dL Creatinine (0.5-1.4) mg/dL Estim Creat Clear Calc Estimated GFR Random Glucose (60-115) mg/dL Calcium (8.4-10.2) mg/dL Total Bilirubin (0.0-1.0) mg/dL Direct Bilirubin (0.0-0.5) mg/dL AST (5-37) U/L ALT (0-40) U/L Alkaline Phosphatase (39-117) U/L Total Protein (6.5-8.0) g/dL Albumin (3.5-5.0) g/dL Lipase (8-78) U/L Urine Color BROWN Urine Appearance Cloudy Urine pH 5.0 (5.0-9.0) Ur Specific Melstone >= 1.030 H (1.005-1.025) Urine Protein 100 (2+) H (Neg-Trace) mg/dL Urine Glucose (UA) Negative (Negative) mg/dL Urine Ketones Trace (Negative) mg/dL Urine Blood Large (3+) H (Negative) Urine Nitrite Negative (Negative) Ur Leukocyte Esterase Negative (Negative) Urine RBC >20 H (0-2) /HPF Urine WBC 6-10 (0-5) /HPF Ur Squamous Epith Cells 3-5 (0-2) /HPF Urine Bacteria 1+ (None Seen) Hyaline Casts 0-2 (0-2) /LPF COVID-19 (MALIHA) (Negative) COVID-19 Clin Com Independent Interpretation I performed an independent interpretation of an: CT Scan Interpretation: hydronephrosis from stone Radiology Impression Discussion of test interpretation with radiology: I have reviewed the radiologist's reading. Prescription Management I considered prescription management with: Pain Medication and Other Medications Administered Discontinued Medications Generic Name Dose Route Start Last Admin Trade Name Rohit PRN Reason Stop Dose Admin Hydromorphone HCl 0.5 mg 07/11/22 06:47 07/11/22 07:06 Hydromorphone Hcl 0.5 Mg/0.5 Ml Syringe IVPUSH 07/11/22 06:48 0.5 mg ONCE ONE Administration Protocol Hydromorphone HCl 1 mg 07/11/22 08:21 07/11/22 08:27 Hydromorphone Hcl 1 Mg/Ml Syringe IVPUSH 07/11/22 08:22 1 mg ONCE ONE Administration Protocol Sodium Chloride 1,000 mls @ 999 mls/hr 07/11/22 06:34 07/11/22 07:58 Ns IV 07/11/22 07:34 Infused .Q1H1M ONE Infusion Lactated Ringer's 1,000 mls @ 999 mls/hr 07/11/22 10:15 07/11/22 10:36 Lr IV 07/11/22 11:15 999 mls/hr .Q1H1M COSTA Administration Ketorolac Tromethamine 15 mg 07/11/22 08:21 07/11/22 08:26 Ketorolac Tromethamine 15 Mg/Ml Vial IVPUSH 07/11/22 08:22 15 mg ONCE ONE Administration Ondansetron HCl 4 mg 07/11/22 06:34 07/11/22 07:06 Ondansetron Hcl 4 Mg/2 Ml Vial IVPUSH 07/11/22 06:35 4 mg ONCE ONE Administration Tamsulosin HCl 0.4 mg 07/11/22 09:56 07/11/22 10:37 Tamsulosin Hcl 0.4 Mg Capsule PO 07/11/22 09:57 0.4 mg ONCE ONE Administration Discharge Plan Discharge Clinical Impression: Ureterolithiasis Patient Disposition: Home, Self-Care Instructions: Ureteral Stones (ED) Additional Instructions: return to ED for any worsening symptoms or concerns return for fevers, vomiting, worsening pain, inability to urinate, if you do not feel you have passed the stone in 48 hours call urology for procedure Mild right hydronephrosis from a 4 mm right UPJ stone. Significant right perinephric fat stranding. This is probably related to plaque flow of urine. Prescriptions: New tamsulosin 0.4 mg capsule 0.4 mg PO DAILY 7 Days Qty: 7 0RF morphine 15 mg tablet 15 mg PO Q4H PRN (Reason: pain) Qty: 15 0RF Rx Instructions: partial fill okay; Partial Fill upon patient request. ondansetron 4 mg tablet,disintegrating 4 mg PO Q8H PRN (Reason: nausea and vomiting) Qty: 20 0RF No Action atorvastatin 80 mg tablet 80 mg PO DAILY Qty: 90 1RF aspirin 81 mg tablet,delayed release (DR/EC) 81 mg PO DAILY metoprolol succinate 50 mg tablet extended release 24 hr 50 mg PO DAILY albuterol sulfate 90 mcg/actuation HFA aerosol inhaler inhalation Spiriva Respimat 2.5 mcg/actuation mist inhalation Atrovent HFA 17 mcg/actuation HFA aerosol inhaler inhalation Referrals: Charles Madrigal MD [Physician] - 2 days (if you feel you have not passed stone) Stand Alone Forms: Work/School Release
[2022-07-11 07:01] LABS: Basophils Percent Auto 0.2 % (0-2); Eosinophils Percent Auto 0.1 % (0-4); Hematocrit 47.5 % (42.0-52.0); Hemoglobin 16.1 g/dl (14.0-18.0); Imm Gran Abs Auto 0.08 X10*3/uL (0.00-0.03); Imm Gran Pct Auto 0.5 % (0.0-0.4); Lymphocytes Absolute Auto 1.3 X10*3/uL (1.2-4.9); Lymphocytes Percent Auto 8.6 % (20-40); MANUAL DIFF FLAG NO; Mean Corpuscular HGB Conc 33.9 g/dl (31.0-36.0); Mean Corpuscular Volume 91.3 fL (80.0-98.0); Mean Platelet Volume 9.9 fL (9.4-12.4); Monocytes Absolute Auto 0.6 X10*3/uL (0.1-1.2); Monocytes Percent Auto 3.9 % (2-11); Neutrophils Absolute Auto 13.2 x10*3/uL (2.0-8.3); Neutrophils Percent Auto 86.7 % (45-73); Platelet Count 202 X10*3/uL (160-400); White Blood Count 15.3 X10*3/uL (4.8-10.8)
[2022-07-11] MEDS: ondansetron HCL 4 MG/2 ML VIAL IVPUSH (07:06)
[2022-07-11] MEDS: HYDROmorphone HCl 0.5 MG/0.5 ML SYRINGE IVPUSH (07:06)
[2022-07-11 07:19] LABS: Alanine Aminotransferase 25 U/L (0-40); Albumin Level 4.2 g/dL (3.5-5.0); Alkaline Phosphatase 116 U/L (39-117); Anion Gap 13 (12-20); Aspartate Amino Transferase 16 U/L (5-37); Bilirubin Direct 0.2 mg/dL (0.0-0.5); Bilirubin Total 0.6 mg/dL (0.0-1.0); Blood Urea Nitrogen 12 mg/dL (9-16); Calcium 9.5 mg/dL (8.4-10.2); Carbon Dioxide 28 mmol/L (22-29); Chloride 106 mmol/L (96-108); Creatinine Clr Calc Pharmacy 74.8; Estimated Glomerular Filt Rate > 60; Glucose Random 133 mg/dL (60-115); Lipase 20 U/L (8-78); Sodium 143 mmol/L (135-145); Total Protein 6.2 g/dL (6.5-8.0)
--- NOTE | 2022-07-11 07:31 | PC.NURSE ---
resting in bed comfortably. medicated per emar. aware of plan of care and denied having any questions.
[2022-07-11] MEDS: Ketorolac Tromethamine 15 MG/ML VIAL IVPUSH (08:26)
[2022-07-11] MEDS: HYDROmorphone HCl 1 MG/ML SYRINGE IVPUSH (08:27)
[2022-07-11 08:44] LABS: COVID-19 Test Negative (Negative); IDNOW Serial# BCCEAD1C
[2022-07-11] MEDS: Lactated Ringers 1,000 ML 999 ML IV (10:36)
[2022-07-11] MEDS: Tamsulosin HCL 0.4 MG CAPSULE PO (10:37)
[2022-07-11 11:29] LABS: Appearance Urine Cloudy; Color Urine BROWN; Glucose Urine UA Negative (Negative); Leukocyte Esterase Urine Negative (Negative); Nitrite Urine Negative (Negative); UMIC TRIGGER UACC YES; Urine Blood Large (3+) (Negative); Urine Ketones Trace mg/dL (Negative); Urine Protein 100 (2+) mg/dL (Neg-Trace)
[2022-07-11 11:34] LABS: Specific Gravity - Urine >= 1.030 (1.005-1.025)
[2022-07-11 11:41] LABS: RBC Urine >20 /HPF (0-2); UACC Culture Trigger YES
[2022-07-11 11:43] LABS: Bacteria Urine 1+ (None Seen)
[2022-07-11 11:44] LABS: Hyaline Casts Urine 0-2 /LPF (0-2)
[2022-07-11] MEDS: Morphine Sulfate Immed Release 15 MG TABLET PO (11:55)
== END 2022-07-11 12:00 | disposition home or self-care (01) ==
PROVIDERS: Emergency Medicine; Emergency Provider Emergency Medicine
DX: N13.2 Hydronephrosis with renal and ureteral calculous obstruction (principal); I10 Essential (primary) hypertension; E78.5 Hyperlipidemia, unspecified; F17.200 Nicotine dependence, unspecified, uncomplicated; Z79.02 Long term (current) use of antithrombotics/antiplatelets; Z79.899 Other long term (current) drug therapy
CPT/HCPCS: 36415; 74176; 80048; 80076; 81001; 83690; 85025; 87086; 87635; 96361; 96374; 96375; 96376; 99284; 99285; J1170; J1885; J2405

== ENCOUNTER → 2022-07-22 08:54 | Outpatient (BNVA) | payer OTHER, SELFPAY | PROVIDERS: Visit Provider Urology | DX: N13.2 Hydronephrosis with renal and ureteral calculous obstruction (principal); F17.210 Nicotine dependence, cigarettes, uncomplicated; Z79.899 Other long term (current) drug therapy | CPT/HCPCS: 51798; 99202 ==

== ENCOUNTER 2022-07-26 09:23 | Day surgery (SDC) | payer OTHER, SELFPAY ==
[2022-07-26] VITALS (7 sets, daily range): BP systolic 120–148; BP diastolic 75–98; PULSE 67–82; RESP 16–18; TEMP 36.1–36.3; O2SAT 92–97; BMI 31.9
--- NOTE | ~2022-07-26 | FL_ITS ---
EXAMINATION: XR FLUOROSCOPY WITH IMAGES CLINICAL INFORMATION: Cystoscopy, urethroscopy. COMPARISON: CT abdomen and pelvis 07/11/2022. TECHNIQUE: Fluoroscopy Supervised By: Dr. Gore. Fluoroscopy Time: 38.3 seconds. Cumulative Dose: 15.35 mGy. Images: 1. FINDINGS: There is a single digital image revealing right pyelogram with contrast opacifying the pelvicalyceal system and the ureters. There is a small filling defect in the right UPJ region. No extravasation of contrast seen. FL/FL guidance in OR IMPRESSION: Fluoroscopy was provided to referring physician for the procedure.
[2022-07-26] MEDS: Lactated Ringers 1,000 ML 80 ML IVCONT (10:30)
--- NOTE | 2022-07-26 12:35 | MHC.SHP ---
Pre-Procedural Eval Section A Date of Service: 07/26/22 The patient is an INPATIENT: No The History & Physical has been completed within 30 days and I have reviewed it.: Yes Section B Chief Complaint: Calculus of kidney, right Allergies: Allergies Allergy/AdvReac Type Severity Reaction Status Date / Time codeine [CODEINE] Allergy Intermediate STOMACH Verified 07/26/22 09:43 UPSET Plan Diagnosis/Plan: Unchanged I have reviewed the history and physical and performed a pertinent physical examination on my patient. No changes have occurred unless specified. Plan for Cystoscopy, right retrograde, ureteroscopy, possible laser lithotripsy, possible ureteral stent. Risks discussed included but not limited to, possible need to repeat procedure if stone is not completely fragmented, Irritative voiding symptoms, bladder spasms, urgency, blood in urine. Time Spent With Patient Time: Total time managing care of this patient today ____ minutes.
--- NOTE | 2022-07-26 12:45 | PC.NURSE ---
Patient in bed receiving albuterol neb ordered by anesthesia, Respiratory at bedside. During treatment, SaO2 reading 97-98%. After treatment complete, SaO2 back down to 93-94% (same as on arrival). No SOB or trouble breathing per patient Dr. Randall at bedside and aware.
--- NOTE | 2022-07-26 14:11 | HO.ANESPROP2 ---
HPI - Anesthesia Eval Consult details Narrative: Rt kidney stone PMFSH Active Problems Active Problems: All Active Problems (Updated 07/22/22 @ 11:27 by Brooke Gore MD) Calculus of right ureter (Acute) Hydronephrosis (Acute) Smoking (Acute) Mixed hyperlipidemia (Acute) Essential hypertension (Acute) Stented coronary artery (Acute) Atherosclerotic cardiovascular disease (Acute) Past Medical History Medical History Atherosclerotic cardiovascular disease COPD (chronic obstructive pulmonary disease) Essential hypertension Mixed hyperlipidemia Smoking Family History Family History Father Hypertension Coronary artery disease Mother No problems noted. Family history of problems with anesthesia: No Surgical History Surgical History (Updated 07/26/22 @ 09:42 by Alyce Hughes) History of cardiac catheterization Previous back surgery Stented coronary artery History of Problems with Anesthesia: No Social History Social History Alcohol intake: never Patient Tobacco Use Status: Current everyday Tobacco user Tobacco use type: Cigarette Cigarette Packs Per Day: 1 Cigarettes Per Day: 20.0 Years Smoked: 50 Smoked in Last 30 Days: Yes Use of substances other than those prescribed or required for medical reasons: No Substance Use Type: Marijuana Are you DNR?: No Advance Directives: No Advance Directives Information Provided: Yes Meds Allergies Allergy/AdvReac Type Severity Reaction Status Date / Time codeine [CODEINE] Allergy Intermediate STOMACH Verified 07/26/22 09:43 UPSET Active Medications: Current Medications Albuterol Sulfate (Albuterol Sulfate (0.083%) 2.5 Mg/3 Ml Vial.Neb) 2.5 mg INHALE Q2H PRN PRN Reason: Copd Lactated Ringer's (Lr) 1,000 mls @ 80 mls/hr IVCONT .[id number] COSTA Last Admin: 07/26/22 10:30 Dose: 80 mls/hr Home Medications Medication Instructions Recorded Confirmed Last Taken Type albuterol sulfate 90 mcg/actuation 1 puff inhalation DAILY 03/03/20 07/26/22 07/26/22 06:00 History aerosol inhaler aspirin 81 mg tablet,delayed 81 mg PO DAILY 03/03/20 07/26/22 07/22/22 History release metoprolol succinate 50 mg 50 mg PO DAILY 03/03/20 07/26/22 07/26/22 06:00 History tablet,extended release 24 hr tiotropium bromide 2.5 2 puff inhalation DAILY 03/03/20 07/26/22 07/26/22 06:00 History mcg/actuation mist for inhalation ipratropium bromide 17 2 puff inhalation DAILY 03/03/21 07/26/22 Unknown History mcg/actuation HFA aerosol inhaler (Atrovent HFA) Exam Exam Date and Time: July 26, 2022 1411 Height,Weight and Vital Signs: Height 5 ft 8 in Weight 95.254 kg Last Vital Signs Temp 97.3 F 07/26/22 09:51 Pulse 70 07/26/22 12:43 Resp 18 07/26/22 12:43 BP 147/89 H 07/26/22 09:51 Pulse Ox 94 07/26/22 09:51 O2 Del Method 07/26/22 09:51 Airway Mallampati Class: II TM Dist: >3cm Neck ROM: Full Partial: Upper and Lower Heart: rr Lungs: slight wheezes Assessment and Plan Assessment Anesthesia Assessment: Anesthesia Plan Discussed, Smoking Cess. Discussed and Chart Reviewed Final Anesthetic Review Family History of Problems with Anesthesia: No History of Problems with Anesthesia: No NPO: Yes ASA Class: II Final Preanesthetic Review: No Changes in Pt Med Stat, Meds/Allgs Chart Reviewed, Consent Obtained/Reviewed and Anes Risks/Benef Reviewed Patient Risk: Intermediate Procedure Risk: Low Anesthetic Plan Anesthetic Plan: GA Disposition: Standard PACU
--- NOTE | 2022-07-26 14:31 | P.CONAN_ITS ---
[facility] Active Problems Active Problems: All Active Problems (Updated 07/22/22 @ 11:27 by Brooke Gore MD) Calculus of right ureter (Acute) Hydronephrosis (Acute) Smoking (Acute) Mixed hyperlipidemia (Acute) Essential hypertension (Acute) Stented coronary artery (Acute) Atherosclerotic cardiovascular disease (Acute) Past Medical History Medical History Atherosclerotic cardiovascular disease COPD (chronic obstructive pulmonary disease) Essential hypertension Mixed hyperlipidemia Smoking Family History Family History Father Hypertension Coronary artery disease Mother No problems noted. Family history of problems with anesthesia: No Surgical History Surgical History (Updated 07/26/22 @ 09:42 by Alyce Hughes) History of cardiac catheterization Previous back surgery Stented coronary artery History of Problems with Anesthesia: No Social History Social History Alcohol intake: never Patient Tobacco Use Status: Current everyday Tobacco user Tobacco use type: Cigarette Cigarette Packs Per Day: 1 Cigarettes Per Day: 20.0 Years Smoked: 50 Smoked in Last 30 Days: Yes Use of substances other than those prescribed or required for medical reasons: No Substance Use Type: Marijuana Are you DNR?: No Advance Directives: No Advance Directives Information Provided: Yes Meds Allergies Allergy/AdvReac Type Severity Reaction Status Date / Time codeine [CODEINE] Allergy Intermediate STOMACH Verified 07/26/22 09:43 UPSET Active Medications: Current Medications Albuterol Sulfate (Albuterol Sulfate (0.083%) 2.5 Mg/3 Ml Vial.Neb) 2.5 mg INHALE Q2H PRN PRN Reason: Copd Fentanyl (Fentanyl Citrate/Pf 100 Mcg/2 Ml Vial) 50 mcg IVPUSH Q5M PRN; Protocol PRN Reason: Pain, Severe (Pain Scale 7-10) Lactated Ringer's (Lr) 1,000 mls @ 80 mls/hr IVCONT .[id number] COSTA Last Admin: 07/26/22 10:30 Dose: 80 mls/hr Ondansetron HCl (Ondansetron Hcl 4 Mg/2 Ml Vial) 4 mg IVPUSH ONCE PRN PRN Reason: Nausea and Vomiting Home Medications Medication Instructions Recorded Confirmed Last Taken Type albuterol sulfate 90 mcg/actuation 1 puff inhalation DAILY 10/06/20 02/28/23 02/28/23 06:00 History aerosol inhaler aspirin 81 mg tablet,delayed 81 mg PO DAILY 03/03/20 07/26/22 07/22/22 History release metoprolol succinate 50 mg 50 mg PO DAILY 03/03/20 07/26/22 07/26/22 06:00 History tablet,extended release 24 hr tiotropium bromide 2.5 2 puff inhalation DAILY 03/03/20 07/26/22 07/26/22 06:00 History mcg/actuation mist for inhalation ipratropium bromide 17 2 puff inhalation DAILY 03/03/21 07/26/22 Unknown History mcg/actuation HFA aerosol inhaler (Atrovent HFA) Exam Exam Date and Time: July 26, 2022 1431 Height,Weight and Vital Signs: Height 5 ft 8 in Weight 95.254 kg Last Vital Signs Temp 97.3 F 07/26/22 09:51 Pulse 70 07/26/22 12:43 Resp 18 07/26/22 12:43 BP 147/89 H 07/26/22 09:51 Pulse Ox 94 07/26/22 09:51 O2 Del Method 07/26/22 09:51 Airway Mallampati Class: II TM Dist: >3cm Neck ROM: Full Partial: Upper and Lower Heart: rr Lungs: cta Assessment and Plan Assessment Anesthesia Assessment: Anesthesia Plan Discussed, Smoking Cess. Discussed and Chart Reviewed Final Anesthetic Review Family History of Problems with Anesthesia: No History of Problems with Anesthesia: No NPO: Yes ASA Class: II Final Preanesthetic Review: No Changes in Pt Med Stat, Meds/Allgs Chart Reviewed, Consent Obtained/Reviewed and Anes Risks/Benef Reviewed Patient Risk: Intermediate Procedure Risk: Low Anesthetic Plan Anesthetic Plan: GA Disposition: Standard PACU
--- NOTE | 2022-07-26 14:34 | P.OP_ITS ---
Operative Note Operative Note Date of Service: 07/26/22 Narrative: PreOperative Diagnosis:?? right ureteral stone Post Operative Diagnosis:?? right ureteral stone Procedure: - cystoscopy, right retrograde, right ureteroscopy Surgeon:?Dr Brooke Gore Anesthesia:? General Indications for procedure: Byron danielson a 62-year-old gentleman was seen in the ED for right flank pain CT imaging noted a 4 mm right UPJ stone. Procedure: After informed consent was verified the patient was brought to the operating placed on the OR table in supine position.? General Anesthesia was administered per protocol.? The patient was placed in lithotomy position, prepped and draped in the usual sterile fashion.? Safety pause time-out and side of surgery confirmed.? Antibiotics confirmed. 2% lidocaine jelly 10 mL was passed transurethrally. A 22 [place] cystoscope was inserted transurethrally, the bulbous urethra was within normal limits. The prostatic urethra noted mild to moderate enlargement. The bladder was visualized.? Both ureteric orifices were visualized. the bladder noted moderate trabeculations and cellules changes. An open-ended ureteral catheter was passed into the ureteral orifice and a retrograde examination was performed. There was a questionable filling defect in the mid ureter and dilatation of the ureter and renal pelvis and calices appeared decompressed. A guidewire was passed through the ureteral catheter into the kidney. The balloon dilator size 12 fr by 4 cm was passed over the guide -wire the balloon was inflated to 10 mmHg and the intramural ureter was dilated for 40 seconds. The balloon was deflated and removed. After removing the balloon dilator a 2nd guidewire was then passed into the kidney to use as a safety. The cystoscope was removed, leaving both guidewires in place. One guidewire was used as the safety and was attached to the draping. The semi rigid ureteroscope was passed over one of the guidewires into the right ureter. A stone was not visualized in the ureter, there was inflammatory changes noted at the proximal ureter/UPJ. the rigid ureteral scope was removed, and the flexible ureteral scope was then passed over the guidewire to evaluate the kidney to be sure the stone did not move retrograde into the kidney. Again inflammatory changes were noted at the right UPJ, there were prominent papillae noted but no visible stone. On removing the flexible ureteral scope there was what appeared to be a small calcification,The 0 degree basket was passed through the ureteroscope, with attempts to remove it, only tissue was noted in the basket. The cystoscope was passed over the safety guidewire into the bladder and right at the entrance of the right ureteral orifice was a tiny calcification, this was flushed out. The bladder was emptied.? The safety guide wire was removed. The rigid cystoscope was removed. ? 2% lidocaine jelly was passed transuretherally. The patient tolerated the procedure well and was brought to the recovery room in stable condition. Complications: None Drains: None
[2022-07-26] MEDS: Phenazopyridine HCL 200 MG TABLET PO (14:52)
== END 2022-07-26 15:37 | disposition home or self-care (01) ==
PROVIDERS: Visit Provider Urology
PROC: (CPT 52352; principal; 2022-07-26 11:10)
DX: N20.1 Calculus of ureter (principal); N13.30 Unspecified hydronephrosis; N32.89 Other specified disorders of bladder; J44.9 Chronic obstructive pulmonary disease, unspecified; I25.10 Atherosclerotic heart disease of native coronary artery without angina pectoris; Z98.61 Coronary angioplasty status; I10 Essential (primary) hypertension; E78.2 Mixed hyperlipidemia; F41.1 Generalized anxiety disorder; F12.90 Cannabis use, unspecified, uncomplicated; F17.210 Nicotine dependence, cigarettes, uncomplicated; Z79.82 Long term (current) use of aspirin; Z79.899 Other long term (current) drug therapy; Z88.8 Allergy status to other drugs, medicaments and biological substances
CPT/HCPCS: 52352; C1726; C1758; C1769; J0690; J1885; J2250; J2405; J3010; Q9967

== ENCOUNTER → 2022-08-10 15:21 | Outpatient (BNVA) | payer OTHER, SELFPAY | PROVIDERS: Visit Provider Urology | DX: Z12.5 Encounter for screening for malignant neoplasm of prostate (principal); N20.1 Calculus of ureter; F17.210 Nicotine dependence, cigarettes, uncomplicated | CPT/HCPCS: 99212 ==

== ENCOUNTER 2022-08-23 09:49 | Outpatient (REF) | payer OTHER, SELFPAY ==
--- NOTE | ~2022-08-23 | CT_ITS ---
EXAMINATION: CT ABDOMEN AND PELVIS WITHOUT CONTRAST CLINICAL INFORMATION: Right ureteral stone COMPARISON: Previous CT of the abdomen and pelvis June 2022 TECHNIQUE: Multidetector volumetric imaging was performed from the superior aspect of the liver through the pubic symphysis. Sagittal and coronal reformatted images were obtained on the technologist's workstation. This CT examination was performed using dose optimization techniques as appropriate, variously including the following: *Automated exposure control *Adjustment of mA and/or kV according to patient size (this includes techniques or standardized protocols for targeted exams where dose is matched to indication/reason for exam; i.e. extremities or head) *Use of iterative reconstruction technique DLP: 484 mGy-cm FINDINGS: LUNG BASES: The visualized lung bases are unremarkable. LIVER, GALLBLADDER, AND BILIARY TREE: The liver is normal in size, shape, and attenuation. No focal hepatic lesion or biliary ductal dilatation is present. The gallbladder is unremarkable with no evidence of radiopaque gallstones, gallbladder wall thickening, or obvious pericholecystic inflammatory changes. PANCREAS: Unremarkable. SPLEEN: Unremarkable. ADRENAL GLANDS: Unremarkable. KIDNEYS AND URETERS: The kidneys are normal in size, shape, and attenuation. No hydronephrosis, hydroureter, or calculi seen. No perinephric stranding. Previously identified right hydronephrosis, perinephric fat stranding and right EJ stone on June 2022 exam no longer seen. BLADDER: Not optimally distended. Is difficult to exclude diffuse bladder wall thickening. GASTROINTESTINAL TRACT: The small and large bowel are unremarkable. The appendix is unremarkable. ABDOMINAL WALL: No significant hernia is appreciated. LYMPH NODES: Small umbilical hernia containing fat. VASCULAR: Atherosclerotic disease. PELVIC VISCERA: Unremarkable. OSSEOUS STRUCTURES: Degenerative changes of the spine and hip joints. CT/CT abdomen pelvis wo IV con IMPRESSION: Unremarkable exam. Resolved right hydronephrosis and perinephric fat stranding from June 2022 exam. Right UPJ stone no longer seen. Fleischner guidelines were followed.
== END 2022-08-23 09:50 | disposition home or self-care (01) ==
LOC: HO.CT 09:49
PROVIDERS: Visit Provider Urology
DX: N20.1 Calculus of ureter (principal)
CPT/HCPCS: 74176

== ENCOUNTER 2022-11-09 10:20 | Outpatient (REF) | payer OTHER, SELFPAY ==
[2022-11-09 12:11] LABS: PSA,Total (Free>4and<10) 1.01 ng/mL (0.00-4.00)
== END 2022-11-09 10:21 | disposition home or self-care (01) ==
LOC: HO.LAB 10:20
PROVIDERS: Visit Provider Urology
DX: Z12.5 Encounter for screening for malignant neoplasm of prostate (principal)
CPT/HCPCS: 36415; 84153

== ENCOUNTER → 2022-11-10 09:12 | Outpatient (BNVA) | payer OTHER, SELFPAY | PROVIDERS: Visit Provider Urology | DX: N20.1 Calculus of ureter (principal); F17.210 Nicotine dependence, cigarettes, uncomplicated | CPT/HCPCS: 51798; 99212 ==

== ENCOUNTER 2023-03-09 10:01 | Outpatient (AMB) | payer OTHER, SELFPAY ==
[2023-03-09 10:06] VITALS: BP 130/84; PULSE 66; BMI 32.8
--- NOTE | 2023-03-09 10:06 | MHC.OFFVIS ---
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 Accompanied by: Self / Same As Patient Allergies codeine [CODEINE] Allergy (Intermediate, Verified 03/09/23 10:09) STOMACH UPSET Medication List - Last Reconciled 03/09/23 by Yeison Rashid MD albuterol sulfate 90 mcg/actuation 1 puff inhalation DAILY aspirin 81 mg PO DAILY atorvastatin 80 mg PO DAILY ipratropium bromide 17 mcg/actuation (Atrovent HFA) 2 puffs inhalation DAILY meloxicam 7.5 mg PO DAILY metoprolol succinate ER 50 mg PO DAILY tamsulosin 0.4 mg PO BEDTIME tiotropium bromide 2.5 mcg/actuation 2 puffs inhalation DAILY HPI HPI Comments History of Present Illness Details Byron returns for follow-up regarding coronary disease.? NSTEMI in 2016, for which he underwent cardiac catheterization and PCI of circumflex and LAD. Overall, doing good. No complaints whatsoever. He states that he is doing a lot of voluntary work in his free time. [facility] Medical History Atherosclerotic cardiovascular disease COPD (chronic obstructive pulmonary disease) Essential hypertension Mixed hyperlipidemia Smoking Surgical History Previous back surgery Stented coronary artery History of cardiac catheterization Family History Father Hypertension Coronary artery disease Mother No problems noted. Social History Alcohol intake: never Patient Tobacco Use Status: Current everyday Tobacco user Tobacco use type: Cigarette Cigarette Packs Per Day: 1 Cigarettes Per Day: 20.0 Years Smoked: 50 Substance Use Type: Marijuana Review of Systems Const Denies weakness ENT Denies dizziness Card Denies chest pain, Denies chest pain with activity, Denies syncope, Denies rapid heart rate, Denies pedal edema, Denies edema, Denies leg edema, Denies lightheadedness, Denies palpitations, Denies dyspnea, Denies dyspnea on exertion and Denies orthopnea Resp Denies cough, Denies dyspnea and Denies dyspnea on exertion GI Denies hematochezia and Denies change in stool character Musc Denies abnormal gait, Denies muscle cramps, Denies muscle weakness, Denies numbness, Denies radiating pain into limb and Denies tingling Neuro Denies abnormal gait, Denies dizziness, Denies syncope, Denies numbness, Denies tingling and Denies weakness Endo Denies palpitations Physical Exam Vital Signs: Last Vital Signs Pulse 66 03/09/23 10:06 BP 130/84 03/09/23 10:06 BMI result Body Mass Index 32.8 Const General: comfortable and no acute distress Orientation/consciousness: patient oriented x3 HEENT Other: Unremarkable Head: Yes normal to inspection Neck Neck: Yes normal visual inspection Chest Chest palpation & inspection: normal inspection of the chest Resp Auscultation: clear to auscultation bilaterally Cardio Palpation: normal PMI Heart sounds: S1 normal heart sound present, S2 normal heart sound present, no gallops, no murmurs and no rubs GI Palpation (GI): Soft to palpation Back/Spine/Pelvis Other: unremarkable Skin General skin exam: no rashes or lesions noted Neuro General: patient oriented x3 Extrem General: Yes normal to inspection Psych Mental Status: mental status grossly normal Office Procedures EKG Details: EKG with sinus rhythm at 66/Min; first-degree heart block; rightward axis; cannot exclude old septal infarct; [place]. [address]-[id number], Complete Assessment & Plan Assessment & Plan (1) Atherosclerotic cardiovascular disease: Code(s): I25.10 - Atherosclerotic heart disease of [place] coronary artery without angina pectoris Plan: Status post cardiac catheterization for NSTEMI in 2016. Culprit lesion in circumflex, status post LAURENT. He also had suspected thromboembolic phenomena related to guide catheter into LAD and underwent thrombectomy of LAD/diagonal as well as PTCA / LAURENT of LAD. No cardiac symptoms. Continue aspirin, beta-blockers and statins. In the past, lipids well controlled. (2) Essential hypertension: Code(s): I10 - Essential (primary) hypertension Plan: He was on lisinopril in the past but not anymore. No changes. (3) Mixed hyperlipidemia: Code(s): E78.2 - Mixed hyperlipidemia Plan: Last triglycerides 114 mg/dL. Last LDL 59 mg/dL. Continue statins. (4) Smoking: Code(s): F17.200 - Nicotine dependence, unspecified, uncomplicated Plan: We have discussed about this numerous times including today. It seems that he just feels lonely at times and smokes. Hopefully, can manage to stop. Coding Level of Care Code Est Pt Level 4 (39769) Diagnoses Atherosclerotic cardiovascular disease I25.10 Essential hypertension I10 Mixed hyperlipidemia E78.2 Smoking F17.200 CPT Codes EKG - CPT: 50594-Nfmzrdxhpcxunwocl, Complete ([id number])
== END 2023-03-09 10:46 | disposition home or self-care (01) ==
PROVIDERS: Visit Provider Internal Medicine
DX: I25.10 Atherosclerotic heart disease of native coronary artery without angina pectoris (principal); I10 Essential (primary) hypertension; E78.2 Mixed hyperlipidemia; F17.200 Nicotine dependence, unspecified, uncomplicated
CPT/HCPCS: 93010; 99214

== ENCOUNTER → 2023-03-09 10:01 | Outpatient (BNVA) | payer OTHER, SELFPAY | PROVIDERS: Visit Provider Internal Medicine | DX: I25.10 Atherosclerotic heart disease of native coronary artery without angina pectoris (principal); I10 Essential (primary) hypertension; E78.2 Mixed hyperlipidemia; I25.2 Old myocardial infarction; F17.210 Nicotine dependence, cigarettes, uncomplicated; Z79.82 Long term (current) use of aspirin; Z79.899 Other long term (current) drug therapy | CPT/HCPCS: 93005; 99212 ==

== ENCOUNTER 2023-07-04 06:00 | Outpatient (REF) | payer MEDICARE, SELFPAY ==
[2023-07-04 06:28] LABS: MANUAL DIFF FLAG NO
[2023-07-04 07:27] LABS: Estimated Average Glucose 111 mg/dL; Hemoglobin A1c % 5.5 % (<6.0)
[2023-07-04 08:02] LABS: Alanine Aminotransferase 23 U/L (0-40); Albumin Level 4.2 g/dL (3.5-5.0); Alkaline Phosphatase 126 U/L (39-117); Anion Gap 14 (12-20); Aspartate Amino Transferase 20 U/L (5-37); Bilirubin Total 0.5 mg/dL (0.0-1.0); Blood Urea Nitrogen 15 mg/dL (9-16); Calcium 9.9 mg/dL (8.4-10.2); Carbon Dioxide 31 mmol/L (22-29); Chloride 102 mmol/L (96-108); Cholesterol 108 mg/dL (<200); Estimated Glomerular Filt Rate > 60; Glucose Random 110 mg/dL (60-115); HDL Cholesterol 29 mg/dL (>40); LDL Cholesterol Calculated 54 mg/dL (<100); Potassium 3.7 mmol/L (3.3-5.1); Sodium 143 mmol/L (135-145); Triglycerides 126 mg/dL (<150)
[2023-07-04 08:20] LABS: Basophils Percent Auto 0.5 % (0-2); Eosinophils Absolute Auto 0.1 X10*3/uL (0.0-0.4); Eosinophils Percent Auto 2.1 % (0-4); Hematocrit 51.2 % (42.0-52.0); Hemoglobin 17.4 g/dl (14.0-18.0); Imm Gran Abs Auto 0.01 X10*3/uL (0.00-0.03); Imm Gran Pct Auto 0.2 % (0.0-0.4); Lymphocytes Absolute Auto 2.3 X10*3/uL (1.2-4.9); Lymphocytes Percent Auto 37.5 % (20-40); Mean Corpuscular Hemoglobin 31.1 pg (27.0-33.0); Mean Corpuscular Volume 91.4 fL (80.0-98.0); Mean Platelet Volume 10.3 fL (9.4-12.4); Monocytes Absolute Auto 0.5 X10*3/uL (0.1-1.2); Neutrophils Absolute Auto 3.2 x10*3/uL (2.0-8.3); Neutrophils Percent Auto 51.7 % (45-73); Platelet Count 205 X10*3/uL (160-400); Red Cell Distribution Width 13.3 % (11.0-16.0); White Blood Count 6.2 X10*3/uL (4.8-10.8)
[2023-07-08 14:39] LABS: Testosterone, Total 402 ng/dL (250-1100)
== END 2023-07-04 06:01 | disposition home or self-care (01) ==
LOC: HO.LAB 06:00
PROVIDERS: PCP Nurse Practitioner Family; Visit Provider Nurse Practitioner Family
DX: Z00.00 Encounter for general adult medical examination without abnormal findings (principal); E78.2 Mixed hyperlipidemia; N52.9 Male erectile dysfunction, unspecified; R53.83 Other fatigue
CPT/HCPCS: 36415; 80053; 80061; 83036; 84403; 85025

== ENCOUNTER → 2024-05-17 10:18 | Outpatient (BNVA) | payer OTHER, SELFPAY | PROVIDERS: PCP Nurse Practitioner Family; Visit Provider Urology ==

== ENCOUNTER 2024-06-13 07:39 | Outpatient (AMB) | payer OTHER, SELFPAY ==
--- NOTE | 2024-06-12 23:41 | A.OFFVIS_ITS ---
Intake Visit Reasons: med follow up- check in manually NO [employer] Intake Note: Patient is present for for follow up med review Urology Med: Tamsulosin Antibiotic Allergy: None Blood Thinner: Aspirin PVR: 15ml's [employer] Required: No Accompanied by: Self / Same As Patient Allergies codeine [CODEINE] Allergy (Intermediate, Verified 06/13/24 07:52) STOMACH UPSET Medication List - Last Reconciled 06/13/24 by Brooke Goer MD albuterol sulfate 90 mcg/actuation 1 puff inhalation DAILY aspirin 81 mg PO DAILY atorvastatin 80 mg PO DAILY ipratropium bromide 17 mcg/actuation (Atrovent HFA) 2 puffs inhalation DAILY meloxicam 7.5 mg PO DAILY metoprolol succinate ER 50 mg PO DAILY tamsulosin 0.4 mg PO BEDTIME tiotropium bromide 2.5 mcg/actuation 2 puffs inhalation DAILY HPI Comments Details: 06/13/24--Byron was last seen in the office 11/10/2022 history of kidney stones On tamsulosin for BPH. States he is doing well. Bladder scan PVR- 15 mL. Continue tamsulosin. Will monitor with renal US and PSA screening. Will call for any abnormal results otherwise follow up in 9 months. Last PSA in chart PSA results reviewed--11/09/22--1.. 08/23/22--Resolved right hydronephrosis and perinephric fat stranding from June 2022 exam. Right UPJ stone no longer seen. Review of chart: Byron is a 62-year-old male who presents to the office for discussion of 24- hour urine collection test and PSA results. 08/10/22-- Byron is a 62-year-old gentleman who is here as a FU for kidney ston es. The patient is on medical marijuana for anxiety. PMH signifcant for CAD, nicotine dependent here for fu, he is status post ureteroscopy, stone not visualized, inflammatory changes noted. He states he has been doing well post procedure. He is drinking more water, cut out soda. AUA symptom score completed and reviewed today (8) - minimal LUTS Evaluation today: Urinalysis - no signs of infection. Plan: Metabolic workup 24 hour urine collection, PSA screening, SLIME on FU OV: 07/22/22--Initial visit - The patient stated he was in the emergency room 2/13/23 with right flank and right-sided abdominal pain. Discussed CT imaging, 07/11/2022- noted a 4 mm right UPJ stone with mild hydronephrosis. He denies nausea vomiting. 11/10/22-- HPI as above also: The patient is S/P cystoscopy and right ureteroscopy on 07/26/22. He is here for follow-up for PSA screening and discussion of 24-hour urine collection test results. The patient did not underwent 24-hour urine collection test result as he did not get the kit. States consuming adequate amount of water and has reduced soda intake. PSA results reviewed--11/09/22--1.01. Evaluation today--Blood: 1+, leukocytes: negative. Bladder scan PVR: 0 mL. On exam: smooth and no suspicious nodules palpated. Plan: 24-hour urine collection test was reordered. Continue tamsulosin 0.4 mg QD. Follow-up after 9 months. [facility] Medical History COPD (chronic obstructive pulmonary disease) Smoking Mixed hyperlipidemia Essential hypertension Atherosclerotic cardiovascular disease Surgical History Previous back surgery Stented coronary artery History of cardiac catheterization Family History Father Hypertension Coronary artery disease Mother No problems noted. Social History Alcohol intake: never Patient Tobacco Use Status: Current everyday Tobacco user Tobacco use type: Cigarette Cigarette Packs Per Day: 1 Cigarettes Per Day: 20.0 Years Smoked: 50 Substance Use Type: Marijuana Review of Systems Const All systems reviewed & are unremarkable except as noted in HPI and below Reports no additional complaints Eyes Reports no additional complaints ENT Reports no additional complaints Card Reports no additional complaints Resp Reports no additional complaints GI Reports no additional complaints Reports as per HPI Musc Reports no additional complaints Skin/Breast Reports system reviewed and no additional complaints, except as documented Neuro Reports no additional complaints Psych Reports no additional complaints Endo Reports no additional complaints Bony/Lymph Reports no additional complaints Aller/Immun Reports no additional complaints Office Procedures Post Void Residual Post Residual Void Post Void Residual (PVR): 15 16530-Tadz Void Residual by ultrasound Results Reviewed Results Reviewed: Date of Service: 08/23/22 CT ABDOMEN AND PELVIS WITHOUT CONTRAST CLINICAL INFORMATION: Right ureteral stone COMPARISON: Previous CT of the abdomen and pelvis June 2022 TECHNIQUE: Multidetector volumetric imaging was performed from the superior aspect of the liver through the pubic symphysis. Sagittal and coronal reformatted images were obtained on the technologist's workstation. This CT examination was performed using dose optimization techniques as appropriate, variously including the following: *Automated exposure control *Adjustment of mA and/or kV according to patient size (this includes techniques or standardized protocols for targeted exams where dose is matched to indication/reason for exam; i.e. extremities or head) *Use of iterative reconstruction technique DLP: 484 mGy-cm FINDINGS: LUNG BASES: The visualized lung bases are unremarkable. LIVER, GALLBLADDER, AND BILIARY TREE: The liver is normal in size, shape, and attenuation. No focal hepatic lesion or biliary ductal dilatation is present. The gallbladder is unremarkable with no evidence of radiopaque gallstones, gallbladder wall thickening, or obvious pericholecystic inflammatory changes. PANCREAS: Unremarkable. SPLEEN: Unremarkable. ADRENAL GLANDS: Unremarkable. KIDNEYS AND URETERS: The kidneys are normal in size, shape, and attenuation. No hydronephrosis, hydroureter, or calculi seen. No perinephric stranding. Previously identified right hydronephrosis, perinephric fat stranding and right EJ stone on June 2022 exam no longer seen. BLADDER: Not optimally distended. Is difficult to exclude diffuse bladder wall thickening. GASTROINTESTINAL TRACT: The small and large bowel are unremarkable. The appendix is unremarkable. ABDOMINAL WALL: No significant hernia is appreciated. LYMPH NODES: Small umbilical hernia containing fat. VASCULAR: Atherosclerotic disease. PELVIC VISCERA: Unremarkable. OSSEOUS STRUCTURES: Degenerative changes of the spine and hip joints. IMPRESSION: Unremarkable exam. Resolved right hydronephrosis and perinephric fat stranding from June 2022 exam. Right UPJ stone no longer seen. Date of Service: 07/11/22 EXAMINATION: CT ABDOMEN AND PELVIS WITHOUT CONTRAST? CLINICAL INFORMATION: Right flank pain? COMPARISON: FINDINGS: LUNG BASES: The visualized lung bases are unremarkable.? LIVER, GALLBLADDER, AND BILIARY TREE: The liver is normal in size, shape, and attenuation. No focal hepatic lesion or biliary ductal dilatation is present. The gallbladder is unremarkable with no evidence of radiopaque gallstones, gallbladder wall thickening, or obvious pericholecystic inflammatory changes.? PANCREAS: Unremarkable.? SPLEEN: Unremarkable.? ADRENAL GLANDS: Unremarkable.? KIDNEYS AND URETERS: Right hydronephrosis from a 4 mm right EJ stone. Right perinephric fat stranding. This is probably related to backflow of urine. Differential would include infection. Normal left kidney. BLADDER: Unremarkable.? GASTROINTESTINAL TRACT: The small and large bowel are unremarkable. The appendix is unremarkable.? ABDOMINAL WALL: Small umbilical hernia containing fat. LYMPH NODES: Normal. VASCULAR: Atherosclerotic disease. PELVIC VISCERA: Unremarkable.? OSSEOUS STRUCTURES: Degenerative changes of the spine and hip joints. IMPRESSION: Mild right hydronephrosis from a 4 mm right UPJ stone. Significant right perinephric fat stranding. This is probably related to plaque flow of urine. Differential would include infection. Clinical correlation recommended. Assessment & Plan Assessment & Plan (1) Nicotine dependence: Code(s): F17.200 - Nicotine dependence, unspecified, uncomplicated Category: Medical (2) BPH loc w urin obs/LUTS: Code(s): N40.1 - Benign prostatic hyperplasia with lower urinary tract symptoms Category: Medical (3) History of kidney stones: Code(s): Z87.442 - Personal history of urinary calculi Category: Medical (4) Screening PSA (prostate specific antigen): Code(s): Z12.5 - Encounter for screening for malignant neoplasm of prostate Category: Medical Plan Continue tamsulosin. Will monitor with renal US and PSA screening. Will call for any abnormal results otherwise follow up in 9 months. Orders: Orders AMB Post Void Residual by ultrasound Today N40.0 - Benign prostatic hyperplasia without lower urinary tract symptoms US renal BI Today Z87.442 - Personal history of urinary calculi PSA,Total (Free>4and<10) Today N40.1 - Benign prostatic hyperplasia with lower urinary tract symptoms, Z12.5 - Encounter for screening for malignant neoplasm of prostate Medications: Refilled tamsulosin 0.4 mg PO BEDTIME 90 caps 3RF Patient Instructions: The patient had an opportunity to ask questions regarding treatment plan. The patient expressed understanding and agreement with the above treatment plan. The patient is aware they should contact our office by phone for worsening of their current condition or the appearance of new symptoms. Compliance is encouraged with any medications and followup testing that is ordered. It is a privilege to be allowed the opportunity to participate in the urologic care of your patient. If you have any questions or concerns regarding treatment for the above conditions please do not hesitate to contact me. The office telephone contact is [phone]. This note is constructed in part using voice recognition software. While every effort has been made to ensure accuracy coal hiker errors may have been included. Yours sincerely, Brooke Gore MD Coding Level of Care Code Est Pt Level 4 (09664) Diagnoses Nicotine dependence F17.200 BPH loc w urin obs/LUTS N40.1 History of kidney stones Z87.442 Screening PSA (prostate specific antigen) Z12.5 CPT Codes Post Residual Void - PVR CPT Code: 73092-Xhyy Void Residual by ultrasound ([id number])
== END 2024-06-13 08:05 | disposition home or self-care (01) ==
PROVIDERS: PCP Nurse Practitioner Family; Visit Provider Urology
DX: F17.200 Nicotine dependence, unspecified, uncomplicated (principal); N40.1 Benign prostatic hyperplasia with lower urinary tract symptoms; Z87.442 Personal history of urinary calculi; Z12.5 Encounter for screening for malignant neoplasm of prostate
CPT/HCPCS: 99214

== ENCOUNTER → 2024-06-13 07:39 | Outpatient (BNVA) | payer OTHER, SELFPAY | PROVIDERS: PCP Nurse Practitioner Family; Visit Provider Urology | DX: N40.1 Benign prostatic hyperplasia with lower urinary tract symptoms (principal); Z12.5 Encounter for screening for malignant neoplasm of prostate; Z87.442 Personal history of urinary calculi; F17.210 Nicotine dependence, cigarettes, uncomplicated | CPT/HCPCS: 51798; 99212 ==

== ENCOUNTER 2024-11-20 06:39 | Outpatient (REF) | payer OTHER, SELFPAY ==
[2024-11-20 07:35] LABS: Estimated Average Glucose 111 mg/dL; Hemoglobin A1c % 5.5 % (<6.0)
[2024-11-20 07:48] LABS: Alanine Aminotransferase 15 U/L (0-40); Albumin Level 4.2 g/dL (3.5-5.0); Alkaline Phosphatase 81 U/L (39-117); Anion Gap 12 (12-20); Aspartate Amino Transferase 15 U/L (5-37); Bilirubin Total 0.4 mg/dL (0.0-1.0); Blood Urea Nitrogen 16 mg/dL (9-16); Calcium 9.2 mg/dL (8.4-10.2); Carbon Dioxide 30 mmol/L (22-29); Chloride 104 mmol/L (96-108); Cholesterol 180 mg/dL (<200); Estimated Glomerular Filt Rate > 60; Glucose Random 92 mg/dL (60-115); HDL Cholesterol 37 mg/dL (>40); LDL Cholesterol Calculated 111 mg/dL (<100); Potassium 4.4 mmol/L (3.3-5.1); Sodium 142 mmol/L (135-145); Total Protein 6.7 g/dL (6.5-8.0); Triglycerides 162 mg/dL (<150)
== END 2024-11-20 06:40 | disposition home or self-care (01) ==
LOC: HO.LAB 06:39
PROVIDERS: PCP Registered Nurse; Visit Provider Registered Nurse
DX: I10 Essential (primary) hypertension (principal); Z13.1 Encounter for screening for diabetes mellitus
CPT/HCPCS: 36415; 80053; 80061; 83036

== ENCOUNTER 2025-01-31 07:45 | Outpatient (REF) | payer OTHER, SELFPAY ==
--- OUTSIDE RECORDS SUMMARY | 2025-01-29 14:15 | XMS_ITS | Encounter Summary ---
Author Organization [employer] Address [address] [facility] [address] [place] [address] Care Team Providers Care Salon Coordinator Name Role Phone Leatha Vu HOG STOMACH PREPARER Primary Care Provider [phone] Reason for Visit * Reason Comments Consult Encounter Details Date Type Department Care Team ([facility] st Contact Info) Description 01/29/2025 2:15 PM EDT Office Visit [facility] ADULT DENTAL [address] [place] [address] Fracisco Levine, DDS [address] [facility] [place] [address] Social History Tobacco Use Types Packs/Day Years Used Date Smoking Tobacco: Every Day Cigarettes Smokeless Tobacco: Never Comments:51 years, 1 pack pe r day Alcohol Use Standard Drinks/Week Comments Not Currently 0 (1 standard drink = 0.6 oz pur e alcohol) occasional Depression Answer Date Recorded Patient Health Questionnaire-9 Score 7 05/08/2024 Patient Health Questionnaire-9 Score 7 05/08/2024 Last PHQ-9: Questionnaire Data Not on file 1 07/09/2023 Housing Stability Answer Date Recorded What is your housing situation today? I have raymon narvaze 02/16/[address] you li ve. Do you have problems with any of the following? None of the above 02/16/2024 Food Insecurity Answer Date Recorded Within the past 12 months, y ou worried that your food would run out before you got money to buy more: Never True 02/16/2024 Within the past 12 months,th e food you bought just didn't last and you didn't have enough money to get more: Never True Transportation Answer Date Recorded In the past 12 months, has l ack of transportation kept you from medical appts, meetings, work or from getting things needed for daily living? No 02/16/2024 Utilities Answer Date Recorded In the past 12 months, has t he electric, gas, oil or water company threatened to shut off services in your home? No 02/16/2024 Depression Answer Date Recorded Patient Health Questionnaire-2 Score 2 05/08/2024 Internet Access Answer Date Recorded Internet Access Q1 Yes 02/16/2024 Internet Access Q2 Not on file 02/16/2024 Sex and Gender Information Value Date Recorded Sex Assigned at Male 03/28/2022 10:22 AM EDT Legal Sex Male 10:22 AM EDT Gender Identity Male 03/28/2022 10:22 AM EDT Sexual Orientation Straight 03/28/2022 10 :22 AM EDT documented as of this encounter Progress Notes * Fracisco Levine DDS - 01/29/2025 2:15 PM EDT Dental procedures in this visit D0140 - LIMITED ORAL EVALUATION - PROBLEM FOCUSED (Completed) Service provider: Fracisco Levine DDS Billing provider: Walker Potts DMD [id number] - CASE PRESENTATION, DETAILED AND EXTENSIVE TREATMENT PLANNING (Completed) Service provider: Fracisco Levine DDS Billing provider: Walker Potts DMD Patient ID: Byron Blankenship is a 65 y.o. male. Time Out: Date: 01/29/2025 Location: [facility] Tooth: Maxilla Procedure: Exam Verified the above with patient, assistant merchandiser, and provider. Confirmed via patient's chart, intraorally and by radiographs. Manager Float: not applicable Doctor's Note: 65 y.o. y/o male presents for limited exam with Dr. Fracisco Levine DDS Medical history: Reviewed in EHR Vitals: There were no vitals taken for this visit. Allergies: Reviewed in EHR Medications: Reviewed in EHR Radiographs taken: Not today CHIEF COMPLAINT: I want to evaluate my treatment options. Discussion: Patient presents for an Oral Surgery consultation. Subjective: - Patient reports no current pain symptoms. - Expresses interest in exploring treatment options and understanding insurance coverage related toimplants. - Plans to delay treatment until at least April, possibly until after his 66th birthday next year, anticipating changes in coverage. Clinical & Radiographic Findings: - Attrition - Gingival recession - Horizontal and vertical bone loss - No tooth mobility - Svin-tm-mxtx occlusion - Periapical radiolucency on tooth #7 - Extensive caries on teeth #5, #6, #11 - Class V caries on teeth #20, #21, #22, #27 Conclusion / Diagnostic Summary: - Full upper extractions are recommended. - Patient was informed of the risks associated with delaying treatment, including progression of decay and potential infection. - Patient prefers to review insurance options--particularly related to implant coverage--before proceeding. Treatment Plan: Restorations: #20, #21, #22, #27 Prophylaxis + Oral Hygiene Instructions (OHI) Extractions: #5-#11 Full upper denture (complete maxillary prosthesis) Next Visit (NV): Restorations Provider: Dr. Fracisco Levine DDS Dental Animal Nutritionist: Dandy Schrader Attending: Dr. Potts * Walker Potts DMD - 01/29/2025 2:15 PM EDT I have reviewed the documentation and dental procedures made by the rendering provider, Fracisco Levine DDS, and approve their chart entries for this visit. Walker Potts DMD documented in this encounter Plan of Treatment Upcoming Encounters Date Type Department Care Team (Late st Contact Info) Description 02/21/2025 1:00 PM EDT Office Visit [facility]IC[facility] [address] [place] [address] [facility] [address] [place] [address] 06/23/2025 8:00 AM EST Office Visit [facility] ADULT DENTAL [address] [place], [place] [id number] Kendall, Selena [address] [place] [address] Scheduled Orders Name Type Priority Associated Diagnoses Orde r Schedule 27 F(V) 27 F(V) RESIN-BASED COMPOSITE - 1 SURF, ANTERIOR Dental Routine 1 Occurrences s tarting 01/29/2025 22 F(V) 22 F(V) RESIN-BASED COMPOSITE - 1 SURF, ANTERIOR Dental Routine 1 Occurrences s tarting 01/29/2025 21 B(V) 21 B(V) RESIN-BASED COMPOSITE - 1 SURF, POSTERIOR Dental Routine 1 Occurrences starting 01/29/2025 20 B(V) 20 B(V) RESIN-BASED COMPOSITE - 1 SURF, POSTERIOR Dental Routine 1 Occurrences starting 01/29/2025 documented as of this encounter Procedures Procedure Name Priority Date/Time Associated Diagnosis Comments LIMITED ORAL EVALUATION - PROBLEM FOCUSED Routine 01/29/2025 2:15 PM EDT CASE PRESENTATION, DETAILED AND EXTENSIVE TREATMENT PLANNING Routine 01/29/2025 2:15 PM EDT documented in this encounter Visit Diagnoses Not on filedocumented in this encounter Additional Health Concerns Assessment Noted Time PHQ-9 Depression Total Score: 7 05/08/20 24 9:16 AM EST documented as of this encounter Care Teams Salon Coordinator Relationship Specialty Start Date End Date Leatha Vu FNP [address] [place] [id number] PCP - General Family Medicine 01/30/24 documented as of this encounter
--- NOTE | 2025-01-31 | PFT_ITS ---
Flows: FEV1: 55 % of predicted at 1.77 L FVC: 80 % of predicted at 3.69 L FEV1/FVC: 48 % Bronchodilator response: Absent Volumes: Total lung capacity: 109 % of predicted at 7.36 L Residual volume: 167 % of predicted at 3.66 L Slow vital capacity: 81 % of predicted at 3.70 L Expiratory reserve volume: 82 % of predicted at 0.95 L Diffusion capacity: Normal Impression: Moderate obstructive ventilatory defect with no bronchodilator response. Increased residual volume suggests air trapping. MTDD
--- OUTSIDE RECORDS SUMMARY | 2025-01-31 07:47 | XMS_ITS | Clinical Summary ---
Author Organization [employer] Address [address] [place] [address] 7 [place] [address] Care Team Providers Care Biller Name Role Phone Leatha Vu [facility] Primary Care Provider [phone] Allergies Active Allergy Reactions Criticality Noted Date Comments Codeine 12/13/2011 Other reaction(s): BURNING IN STOMACH Medications atorvastatin (Lipitor) 80 MG tablet take 1 tablet by oral route every day at bedtime 90 tablet 3 11/24/19 24 Active metoprolol succinate XL (Toprol-XL) 50 MG 24 hr tablet Take 1 tablet (50 mg) by mouth Once per day. Do not crush or chew. 90 tablet 3 11/24/19 24 Active terbinafine (LamISIL AT) 1 % creamIndicatio ns:Tinea pedis of both feet Apply topically 2 times daily. 42 g 02/16/20 24 Active tiotropium (Spiriva Respimat) 2.5 MCG/ACT inhalerIndicat ions:Chronic obstructive pulmonary disease, unspecified COPD type (CMS/HCC) inhale 2 puff by inhalation route every day at the same time each day 1 each 02/19/20 24 Active ipratropium (Atrovent) 17 MCG/ACT inhalerIndicat ions:Chronic obstructive pulmonary disease, unspecified COPD type (CMS/HCC) INHALE 2 PUFFS BY MOUTH FOUR TIMES DAILY NEEDED 12.9 g 11 11/02/19 25 Active Aspirin Low Dose 81 MG EC tablet TAKE 1 TABLET(81 MG) BY MOUTH DAILY 90 tablet 3 11/28/19 25 Active meloxicam (Mobic) 7.5 MG tabletIndicati ons:Arthropath y of lumbar facet joint TAKE 1 TABLET(7.5 MG) BY MOUTH IN THE MORNING 90 tablet 3 12/17/19 25 Active Ventolin HFA 108 (90 Base) MCG/ACT inhalerIndicat ions:Chronic obstructive pulmonary disease, unspecified COPD type (CMS/HCC) Inhale 2 puffs every 4 (four) hours if needed for wheezing. 18 g 11 01/04/20 25 Active clotrimazole (Lotrimin) 1 % creamIndicatio ns:Tinea pedis of both feet APPLY TOPICALLY TO THE AFFECTED AREA TWICE DAILY 30 g 01/11/20 25 Active clotrimazole (Lotrimin) 1 % creamIndicatio ns:Tinea pedis of both feet Apply topically 2 times daily. 12 g 3 11/19/19 25 025 Discontinued Ventolin HFA 108 (90 Base) MCG/ACT inhaler INHALE 2 PUFFS BY MOUTH EVERY 4 HOURS NEEDED FOR WHEEZING OR SHORTNESS OF BREATH 18 g 11/21/19 25 025 Discontinued(Re order (will not trigger notification to Pharmacy)) Active Problems Problem Noted Date Diagnosed Date Cocaine abuse 11/19/2024 Tobacco use disorder 05/08/2024 Mood disorder 05/08/2024 Overview (05/08/2024): Loretoraman Andrea with [facility]. Reports previously on many pills did not tolerate. Self discontinued. Now managed with medical marijuana. Arthropathy of lumbar facet joint 01/17/2023 Essential hypertension 01/17/2023 Overview (05/08/2024): HTN/CAD NSTEMI 06/2015 s/p stent to LCX. Previously followed by Dr. Rashid--no records in chart Neoplasm of meninges 01/17/2023 Overview (05/08/2024): 6 mm calcified meningioma found on CT 06/29/20, per UTD for WHO grade I meningioma <2cm, repeat in 3-6 mo to assess growth, then annually for 3-5 years, then q2-3 yrs, depending on pts candidacy for intervention Coronary arteriosclerosis 07/24/2019 Hyperlipidemia 08/20/2018 Mixed bipolar affective disorder, moderate 05/04 Obesity 01/19/2015 Chronic obstructive lung disease 05/24/2013 Overview (05/08/2024): Requesting PA for spiriva respimat. 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 Followed by pulmonology. Established with LDLCT program Impaired fasting glucose 04/11/2013 Erectile dysfunction 04/25/2012 Insomnia due to mental disorder 12/13/2011 First degree atrioventricular block 12/08/2011 Encounters Date Type Department Care Team Description 01/29/2025 2:15 PM EDT Office Visit [facility] [address] [place], [place] [phone] Fracisco Levine DDS 01/11/2025 Refill [facility] [address] [place] [address] Leatha Vu FNP Tinea pedis of both feet 01/10/2025 Refill [facility] [address] [place] [address] Rosana Garcia FNP Tinea pedis of both feet 01/07/2025 Telephone [facility] [address] [place] [address] Amrit Walden DMD 01/03/2025 Orders Only [facility] [address] [place] [phone] Leatha Vu FNP Chronic obstructive pulmonary disease, unspecified COPD type (CMS/HCC) (Primary Dx) 12/27/2024 Telephone [facility] [address] [place] [address] Leatha Vu FNP Nurse Triage; MEDICATION COMPLAINT 12/14/2024 Refill [facility] [address] [place] [address] Rosana Garcia FNP Arthropathy of lumbar facet joint; Chronic obstructive pulmonary disease, unspecified COPD type (CMS/HCC) 12/10/2024 8:00 AM EDT Office Visit [facility] [address] [place] [address] Amrit Walden DMD 12/10/2024 Telephone [facility] [address] [place] [phone] Leatha Vu FNP Stable Lab Letter 12/09/2024 Results Follow-Up [facility] [address] [place] [phone] ColumbiaLeatha [facility] Lipid Panel, Standard, Comprehensive Metabolic Panel, Hemoglobin A1c 12/04/2024 Refill [facility] [address] [place] [address] ColumbiaLeatha [facility] 11/27/2024 Refill [facility] [address] [place] [address] Rosana Garcia, JOSEFINA 11/21/2024 Refill [facility] [address] [place] [address] Danika Brambila DO 11/20/2024 Refill [facility] [address] [place] [address] ColumbiaLeatha [facility] 11/19/2024 Telephone [facility] [address] [place] [address] ColumbiaLeatha [facility] Appointment Request 11/18/2024 9:15 AM EDT Office Visit [address] [address] ColumbiaLeatha [facility] Essential hypertension (Primary Dx); Poor dentition; Tinea pedis of both feet; Cocaine abuse (CMS/HCC); Mixed bipolar affective disorder, moderate (CMS/HCC); Chronic obstructive pulmonary disease, unspecified COPD type (CMS/HCC); Poor dentition requiring referral to dentistry; Dietary counseling; Exercise counseling 11/18/2024 Travel 11/15/2024 Telephone [facility] [address] [place] [address] ColumbiaLeatha [facility] chart prep 11/08/2024 2:00 PM EDT Office Visit [facility] [address] [place] [address] Terry Agosto MD Seborrheic keratosis (Primary Dx); Hemangioma of skin 11/08/2024 Travel 11/07/2024 Travel from Last 3 Months Immunizations Immunization Administration Dates Next Due Influenza injectable quadriv alent IIV4 with preservative 07/24/2019,02/25/2016,05/04/2015 Influenza injectable quadriv alent preservative free 04/26/2021,07/17/2020 Influenza, IIV3, injectable 04/10/2014 Influenza, Split (incl. nicolas fied surface antigen) 04/15/2013,04/25/2012 Influenza, seasonal, injecta ble, preservative free 02/16/2024 Pneumococcal Polysaccharide PPSV23 04/28/2014 TD (adult), 2 Lf tetanus tox oid, preservative free, adsorbed 02/16/2024 Tdap 12/13/2011 Zoster, live 04/19/2013 Family History Medical History Relation Name Comments Heart attack Father Hypertension Father Uterine cancer Mother Adrenal disorder Sister Relation Name Status Comments Father Mother Sister Social History Tobacco Use Types Packs/Day Years Used Date Smoking Tobacco: Every Day Cigarettes Smokeless Tobacco: Never Tobacco Cessation:Ready to Q uit: Not Asked; Counseling Given: Not Answered Comments:51 years, 1 pack per day Alcohol Use Standard Drinks/Week Comments Not Currently 0 (1 standard drink = 0.6 oz pur e alcohol) occasional Depression Answer Date Recorded Patient Health Questionnaire-9 Score 7 05/08/2024 Patient Health Questionnaire-9 Score 7 05/08/2024 Last PHQ-9: Questionnaire Data Not on file 1 07/09/2023 Housing Stability Answer Date Recorded What is your housing situation today? I have raymon narvaez 02/16/[address] you li [...] Orientation Straight 03/28/2022 10 :22 AM EDT Last Filed Vital Signs Vital Sign Reading Time Taken Comments Blood Pressure 128/82 12/10/2024 8:06 AM EDT Pulse 68 12/10/2024 8:06 AM EDT Temperature 36.1 C (96.9 F) 11/18/2024 9:14 AM EDT Respiratory Rate 20 11/18/2024 9:14 AM EDT Oxygen Saturation 98% 05/08/2024 9:14 AM EST Inhaled Oxygen Concentration - - Weight 91.5 kg (201 lb 12.8 oz) 025 9:14 AM EDT Height 172.7 cm (5' 8 ) 11/18/2024 9:14 AM EDT Body Mass Index 30.68 11/18/2024 9:14 AM EDT Plan of Treatment Upcoming Encounters Date Type Department Care Team (Late st Contact Info) Description 02/21/2025 1:00 PM EDT Office Visit [facility] [address] [place] [address] [place], Leatha, [facility] [address] [place] [address] 06/23/2025 8:00 AM EST Office Visit [facility] [address] [place] [address] Selena Argueta [address] [place] [address] Health Maintenance Due Date Last Done Comments CT Colonography 1961 Colonoscopy 1961 Colorectal Cancer Screening 1961 FIT DNA/Cologuard 1961 FIT 1961 FOBT 1961 Sigmoidoscopy 1961 Zoster Vaccines (2 of 3) 06/14/2013 04/19/2013 Dental Prophylaxis 06/19/2014 12/16/2013, 03/28/2013 Pneumococcal Vaccine: 50+ Years (2 of 2 - PCV) 04/28/2015 04/28/2014 RSV Patients and Patients Aged 60 years or older (1 - Risk 60-74 years 1-dose series) 2021 COVID-19 Vaccine (3 - 2024- season) 2025 09/03/2020, 08/06/2020 Influenza Vaccine (#1) 2025 , 04/26/2021, 07/17/2020, Additional history exists SDOH Screening 02/15/2025 02/16/2024 Depression Screening 05/08/2025 05/08/2024, 05/08/20 Dental Oral Exam 06/13/2025 12/10/2024, 06/2021, 09/24/2013, Additional history exists Alcohol/Substance Use Screening 11/18/2025 11/18/2024 Disability Screening 11/18/2025 11/18/2024 Dental X-Ray: Bitewings 12/11/2025 12/11/19 25, 06/30/2021, 09/24/2013 Tobacco Screening 01/29/2026 01/29/2025 Dental X-Ray: Full Mouth 12/12/2027 025, 06/30/2021, 11/16/2011 Lipid Panel 11/20/2029 11/20/2024, 07/04/2023 DTaP/Tdap/Td Vaccines (3 - Td or Tdap) 02/15/2034 02/16/2024, 12/13/2011 HIV Screening Completed 12/03/2020, 12/03/2020 Hepatitis C Screening Completed 12/03/2020 HIB Vaccines Aged Out No longer eligi ble based on patient's age to complete this topic HPV Vaccines Aged Out No longer eligi ble based on patient's age to complete this topic Hepatitis A Vaccines Aged Out No long er eligible based on patient's age to complete this topic Hepatitis B Vaccines Aged Out No long er eligible based on patient's age to complete this topic IPV Vaccines Aged Out No longer eligi ble based on patient's age to complete this topic Meningococcal B Vaccine Aged Out No l onger eligible based on patient's age to complete this topic Meningococcal Vaccine Aged Out No мария ladonna eligible based on patient's age to complete this topic RSV under 20 months Aged Out No longe r eligible based on patient's age to complete this topic Rotavirus Vaccines Aged Out No longer eligible based on patient's age to complete this topic Procedures Procedure Name Priority Date/Time Associated Diagnosis Comments LIMITED ORAL EVALUATION - PROBLEM FOCUSED Routine 01/29/2025 2:15 PM EDT CASE PRESENTATION, DETAILED AND EXTENSIVE TREATMENT PLANNING Routine 01/29/2025 2:15 PM EDT CASE PRESENTATION, DETAILED AND EXTENSIVE TREATMENT PLANNING Routine 12/10/2024 8:00 AM EDT PERIODIC ORAL EVALUATION - ESTABLISHED PATIENT Routine 12/10/2024 8:00 AM EDT INTRAORAL - COMPLETE SERIES OF RADIOGRAPHIC IMAGES Routine 12/10/2024 8:00 AM EDT 17 EXTRACTION Routine 12/10/2024 12:00 AM EDT 16 EXTRACTION Routine 12/10/2024 12:00 AM EDT HEMOGLOBIN A1C Routine 11/20/2024 6:45 AM EDT Essential hypertension COMPREHENSIVE METABOLIC PANEL Routine 11/20/2024 6:45 AM EDT Essential hypertension LIPID PANEL, STANDARD Routine 11/20/2024 6:45 AM EDT Essential hypertension ZZZ HISTORICAL HEPATITIS C ANTIBODY RFLX Routine 12/03/2020 6:25 AM EDT ZZZ HISTORICAL HEPATITIS B SURFACE ANTIGEN* Routine 12/03/2020 6:25 AM EDT PROPHYLAXIS - ADULT Routine 12/16/2013 1 2:00 AM EDT from Last 3 Months or Most Recently Relevant to Health Maintenance Results * Hemoglobin A1c (11/20/2024 6:45 AM EDT) Hemoglobin A1c 5.5 <6.0 % [facility] Comment:Hemoglobin A1C Refer ence Range Adults: 4.8 - 6.0 % Non diabetic: < 6.0 % Goal: < 7.0 %Additional Action Suggested: > 8.0 %Note: Hemoglobin A1c results are invalid for patients with abnormal amounts of HbF. Blood transfusions may impact the HbA1c concentration in the patient sample. Estimated Average Glucose 111 mg/dL [facility] Comment:eAG = Estimated ave rage glucose which is %A1C expressed asaverage glucose, using the formula of the G8E-GtpivdeWnymnei Glucose study (ADAG), Diabetes Care, Vol.31,#8,2007 Blood Venous blood specimen / Unknown 11/20/2024 6:45 AM EDT 11/20/2024 6:45 AM EDT [facility] LAB BLOOD ORDERABLES Final Re sult Performing Organization Address [facility] Co de Phone Number [facility] [address] [place] [phone] * (ABNORMAL) Lipid Panel, Standard (11/20/2024 6:45 AM EDT) Triglycerides 162(H) <150 mg/dL [facility] Comment:Desirable Triglyceri de: less than 150 mg/dLBorderline High Triglyceride 150-199 mg/dLHigh Triglyceride: 200-499 mg/dLVery High Triglyceride: greater than or equal to 5OO mg/dL Cholesterol 180 <200 mg/dL [facility] Comment:Desirable Cholestero l: less than 200 mg/dLBorderline High Cholesterol: 200-239 mg/dLHigh Cholesterol: greater than 239 mg/dL LDL Cholesterol Calculated 111(H) <100 mg/dL [facility] Comment:Desirable LDL: less than 100 mg/dLNear Optimal/Above Optimal LDL: 110- 129 mg/dLBorderline High LDL: 130-159 mg/dLHigh LDL: 160-189 mg/dLVery High LDL: greater than or equal to 190 mg/dL HDL Cholesterol 37(L) >40 mg/dL [facility] Comment:Desirable HDL: great er than 40 mg/dL Note: This HDL assay may give artificially low results in patients with liver disease. Blood Venous blood specimen / Unknown 11/20/2024 6:45 AM EDT 11/20/2024 6:45 AM EDT [facility] LAB BLOOD ORDERABLES Final Re sult Performing Organization Address [facility]/ZIP Co de Phone Number [facility] [address] [place] [phone] * (ABNORMAL) Comprehensive Metabolic Panel (11/20/2024 6:45 AM EDT) Pathologist [facility] Sodium 142 135 - 145 mmol/L [facility] Potassium 4.4 3.3 - 5.1 mmol/L [facility] Chloride 104 96 - 108 mmol/L [facility] Carbon Dioxide 30(H) 22 - 29 mmol/L [facility] Anion Gap 12 12 - 20 [facility] Urea Nitrogen (BUN) 16 9 - 16 mg/dL [facility] Creatinine, Serum 1.08 0.5 - 1.4 mg/dL [facility] Estimated Glomerular Filt Rate >60 [facility] Comment:Chronic Kidney Disea se: Estimated GFR < 60 mL/min/[id number] Kidney Disease: Estimated GFR < 15 mL/min/1.73m2 Glucose 92 60 - 115 mg/dL [facility] Calcium 9.2 8.4 - 10.2 mg/dL [facility] Bilirubin, Total 0.4 0.0 - 1.0 mg/dL [facility] Aspartate Amino Transferase 15 5 - 37 U/L [facility] Alanine Aminotransferase 15 0 - 40 U/L [facility] Total Protein 6.7 6.5 - 8.0 g/dL [facility] Albumin Level 4.2 3.5 - 5.0 g/dL [facility] Alkaline Phosphatase 81 39 - 117 U/L [facility] Blood Venous blood specimen / Unknown 11/20/2024 6:45 AM EDT 11/20/2024 6:45 AM EDT [facility] LAB BLOOD ORDERABLES Final Re sult [facility] [address] [place] [address] [phone] * HEPATITIS C ANTIBODY RFLX (12/03/2020 6:25 AM EDT) Pathologist [facility] Hepatitis C Antibody Nonreactive Nonreactive [facility] Comment: Antibodies to HCV not detected; does not exclude early acute HCV infection. 12/03/2020 6:25 AM EDT [facility] HISTORICAL/NON ORDERABLE LABS Final Result Performing Organization Address [facility] de Phone Number [facility] [address] [place] [address], * HEPATITIS B SURFACE ANTIGEN* (12/03/2020 6:25 AM EDT) Pathologist [facility] Hepatitis B Surface Antigen Negative Negative [facility] Hepatitis B Core Antibody Nonreactive Nonreactive [facility] Hepatitis B Surface Antibody NONREACTIVE Nonreactive [facility] Comment:Nonreactive: < 8.00 mIU/mL HIV AB/AG Nonreactive Nonreactive [facility] Comment: HIV-1 p24 Ag and/or HIV-1/HIV-2 Ab not detected. A test result that is nonreactive does not exclude the possibility of exposure to or infection with HIV-1 and/or HIV-2. Nonreactive results in this assay for individuals with prior exposure to HIV-1 and/or HIV-2 may be due to antigen and antibody levels that are below the limit of detection of this assay. [facility] HIV Ag/Ab Combo assay result and supplemental assay results should be interpreted in conjunction with the patient's clinical presentation, history and other laboratory results. If the results are inconsistent with clinical evidence, additional testing is suggested to confirm the result. 12/03/2020 6:25 AM EDT [facility] Final Result Performing Organization Address [facility] de Phone Number [facility] [address] from Last 3 Months or Most Recently Relevant to Health Maintenance Insurance [employer] < [address] [place] [address] Care Teams Biller Relationship Specialty Start Date End Date Leatha Vu FNP [address] [place] [phone] PCP - General Family Medicine 01/30/24
--- OUTSIDE RECORDS SUMMARY | 2025-01-31 07:47 | XMS_ITS | Encounter Summary ---
Author Organization [employer] Address [address] [place] [address] [facility] [place] [address] Care Team Providers Care Produce Service Team Member Name Role Phone Horace [facility] Primary Care Provider [phone] William Garcianne [facility] Primary Care Provider + Milton [facility] Primary Care Provider Reason for Visit * Reason Comments Med Refill Encounter Details Date Type Department Care Team (Late st Contact Info) Description 08/15/2022 Refill [facility] [address] [place] [address] [place] Leatha [facility] [address] [place] [address] Wheezing Social History Tobacco Use Types Packs/Day Years Used Date Smoking Tobacco: Never Assessed Sex and Gender Information Value Date Recorded Sex Assigned at Male 03/28/2022 10:22 AM EDT Legal Sex Male 10:22 AM EDT Gender Identity Male 03/28/2022 10:22 AM EDT Sexual Orientation Straight 03/28/2022 10 :22 AM EDT documented as of this encounter Plan of Treatment Upcoming Encounters Date Type Department Care Team (Late st Contact Info) Description 02/21/2025 1:00 PM EDT Office Visit [facility] [address] [place] [address] [place], Leatha [facility] [address] [place] [address] 06/23/2025 8:00 AM EST Office Visit [facility] [address] [place] [address] Selena Argueta [address] [place] [address] documented as of this encounter Visit Diagnoses Diagnosis Wheezing documented in this encounter Care Teams Produce Service Team Member Relationship Specialty Start Date End Date Leatha Vu FNP [address] [place] [address] PCP - General Family Medicine 01/24/22 01/17/23 Rosana Garcia FNP [address] [place] [address] PCP - General Family Medicine 01/18/23 01/29/24 Leatha Vu FNP [address] [place] [address] PCP - General Family Medicine 01/30/24 documented as of this encounter
--- OUTSIDE RECORDS SUMMARY | 2025-01-31 07:47 | XMS_ITS | Encounter Summary ---
Author Organization [employer] Address [address] [facility] 7 [place] [address] Care Team Providers Care Custodial Worker Name Role Phone Rosana Garcia [facility] Primary Care Provider [phone] [place] [facility] Primary Care Provider [phone] Reason for Visit * Reason Comments Med Refill Encounter Details Date Type Department Care Team ([facility] st Contact Info) Description 08/24/2023 Refill [facility] [address] [place] [address] Rosana Garcia FNP [address] [place] [address] Social History Tobacco Use Types Packs/Day Years Used Date Smoking Tobacco: Every Day Cigarettes Smokeless Tobacco: Never Comments:51 years, 1 pack pe r day Alcohol Use Standard Drinks/Week Comments Not Currently 0 (1 standard drink = 0.6 oz pur e alcohol) occasional Depression Answer Date Recorded Patient Health Questionnaire-9 Score 5 01/18/2023 Housing Stability Answer Date Recorded What is your housing situation today? I have housing today, but I am worried about losing housing in the future 03/14/[address] you li ve. Do you have problems with any of the following? None of the above 03/14/2023 Food Insecurity Answer Date Recorded Within the past 12 months, y ou worried that your food would run out before you got money to buy more: Never True 03/14/2023 Within the past 12 months,th e food you bought just didn't last and you didn't have enough money to get more: Never True Transportation Answer Date Recorded In the past 12 months, has l ack of transportation kept you from medical appts, meetings, work or from getting things needed for daily living? No 03/14/2023 Utilities Answer Date Recorded In the past 12 months, has t he electric, gas, oil or water company threatened to shut off services in your home? No 03/14/2023 Depression Answer Date Recorded Patient Health Questionnaire-2 Score 1 01/18/2023 Sex and Gender Information Value Date Recorded Sex Assigned at Male 03/28/2022 10:22 AM EDT Legal Sex Male 10:22 AM EDT Gender Identity Male 03/28/2022 10:22 AM EDT Sexual Orientation Straight 03/28/2022 10 :22 AM EDT documented as of this encounter Plan of Treatment Upcoming Encounters Date Type Department Care Team (Late st Contact Info) Description 02/21/2025 1:00 PM EDT Office Visit [facility] [address] [place] [address] Leatha Vu FNP [address] [place] [address] 06/23/2025 8:00 AM EST Office Visit [facility] [address] [place] [address] [place], Selena [address] [place] [address] documented as of this encounter Visit Diagnoses Not on filedocumented in this encounter Additional Health Concerns Assessment Noted Time PHQ-9 Depression Total Score: 5 01/19/20 23 9:35 AM EDT documented as of this encounter Care Teams Custodial Worker Relationship Specialty Start Date End Date Rosana Garcia FNP [address] [place] [address] PCP - General Family Medicine 01/18/23 01/29/24 HoraceLeatha carson FNP [address] [place] [phone] PCP - General Family Medicine 01/30/24 documented as of this encounter
--- OUTSIDE RECORDS SUMMARY | 2025-01-31 07:47 | XMS_ITS | Encounter Summary ---
Author Organization [employer] Address [address] [employer] [address] 7 [place] [address] Care Team Providers Care Construction Administrator Name Role Phone Rosana Garcia SLIP COVER SEWER Primary Care Provider [phone] [place] [facility] Primary Care Provider [phone] Reason for Visit * Reason Onset Date Comments Med Refill 11/02/2023 Encounter Details Date Type Department Care Team (Late st Contact Info) Description 11/02/2023 Telephone [facility] MEDICINE [address] [place] [address] Rosana Garcia FNP [address] [place] [address] Med Refill Social History Tobacco Use Types Packs/Day Years [...] AM EDT documented as of this encounter Miscellaneous Notes * Telephone Encounter - Danika rOtega LPN - 11/03/2023 9:47 AM EDT Medication pended to provider. * Telephone Encounter - Ana Villavicencio - 11/03/2023 9:39 AM EDT Tc from pt requesting a refill for Ventolin HFA 108 (90 Base) MCG/ACT inhaler, global technical writer contact pharmacy pt does not have any refills left. * Telephone Encounter - Danika Ortega LPN - 11/02/2023 8:38 AM EDT Medication not pended all meds should have refills. * Telephone Encounter - Kaya Cason - 11/02/2023 8:23 AM EDT TC from pt requesting medication refill. Medications needing refill : ipratropium (Atrovent HFA) 17 MCG/ACT inhaler tiotropium (Spiriva Respimat) 2.5 MCG/ACT inhaler Ventolin HFA 108 (90 Base) MCG/ACT inhaler To be sent to: [facility] #[id number] - [place] - [address] [facility] [address] documented in this encounter Plan of Treatment Upcoming Encounters Date Type Department Care Team (Late st Contact Info) Description 02/21/2025 1:00 PM EDT Office Visit [facility] MEDICINE [address] [place] [address] Leatha Vu FNP [address] [place] [address] 06/23/2025 8:00 AM EST Office Visit [facility] ADULT DENTAL [address] [place] [address] Kendall, Selena [address] [place] [address] documented as of this encounter Visit Diagnoses Not on filedocumented in this encounter Additional Health Concerns Assessment Noted Time PHQ-9 Depression Total Score: 5 01/19/20 9:35 AM EDT documented as of this encounter Care Teams Construction Administrator Relationship Specialty Start Date End Date Rosana Garcia FNP [address] [place] [address] PCP - General Family Medicine 01/18/23 01/29/24 Leatha [place] [address] PCP - General Family Medicine 01/30/24 documented as of this encounter
--- OUTSIDE RECORDS SUMMARY | 2025-01-31 07:47 | XMS_ITS | Encounter Summary ---
Author Organization [employer] Address [address] [facility] 7t [place] [address] Care Team Providers Care Records Management Specialist Name Role Phone Leatha Vu [facility] Primary Care Provider [phone] Reason for Visit * Reason Comments Med Refill Encounter Details Date Type Department Care Team ([facility] st Contact Info) Description 08/29/2024 Refill [facility] MEDICINE [address] [place], [place] [phone] Leatha Vu [facility] [address] [place] [address] Social History Tobacco Use Types Packs/Day Years [...] Description 02/21/2025 1:00 PM EDT Office Visit [facility] MEDICINE [address] [place] [address] Leatha Vu FNP [address] [place] [address] 06/23/2025 8:00 AM EST Office Visit [facility] ADULT DENTAL [address] [place] [address] Kendall, Selena [address] [place] [address] documented as of this encounter Visit Diagnoses Not on filedocumented in this encounter Additional Health Concerns Assessment Noted Time PHQ-9 Depression Total Score: 7 05/08/20 9:16 AM EST documented as of this encounter Care Teams Records Management Specialist Relationship Specialty Start Date End Date Leatha Vu FNP [address] [place] [address] PCP - General Family Medicine 01/30/24 documented as of this encounter
--- OUTSIDE RECORDS SUMMARY | 2025-01-31 07:47 | XMS_ITS | Clinical Summary ---
Author Organization [facility] Address [address] [place] [address] Care Team Providers Care Drill Press Operator For Metal Name Role Phone Unavailable Primary Care Provider Unavailabl e Social History Tobacco Use Types Packs/Day Years Used Date Smoking Tobacco: Never Assessed Sex and Gender Information Value Date Recorded Sex Assigned at Not on file Gender Identity Not on file Sexual Orientation Not on file Plan of Treatment Health Maintenance Due Date Last Done Comments Hepatitis C Screening 1961 COVID-19 Vaccine (#1) 1961 Depression Screening 1973 Preventative Health Evaluation 1979 DTap / Tdap / Td (1 - Tdap) 01/03/1980 Colon Cancer Screening (Colonoscopy) 2006 Shingrix-Zoster Vaccine (1 of 2) 2011 Influenza Vaccine (#1) 2025 Pneumococcal Vaccine (1 of 1 - PCV) 2026 RSV Adult > 60+ Yrs or Pregn ant (1 - 1-dose 75+ series) 01/03/2036 Hepatitis B Vaccines Aged Out No long er eligible based on patient's age to complete this topic Pneumococcal Vaccine Aged Out No long er eligible based on patient's age to complete this topic RSV Ped < 20 months Aged Out No longe r eligible based on patient's age to complete this topic
--- OUTSIDE RECORDS SUMMARY | 2025-01-31 07:47 | XMS_ITS | Encounter Summary ---
Author Organization [employer] Address [address] [facility] 7t [place] [address] Care Team Providers Care Machine Setter And Repairer Name Role Phone Leatha Vu [facility] Primary Care Provider Reason for Visit * Reason Comments Med Refill Encounter Details Date Type Department Care Team ([facility] st Contact Info) Description 12/04/2024 Refill [facility] MEDICINE [address] [place], [place] [phone] Leatha Vu [facility] [address] [place] [address] Social History Tobacco Use Types Packs/Day Years [...] Description 02/21/2025 1:00 PM EDT Office Visit [facility] MEDICINE [address] [place] [address] Leatha Vu FNP [address] [place] [address] 06/23/2025 8:00 AM EST Office Visit [facility] ADULT DENTAL [address] [place] [address] Kendall, Selena [address] [place] [address] documented as of this encounter Visit Diagnoses Not on filedocumented in this encounter Additional Health Concerns Assessment Noted Time PHQ-9 Depression Total Score: 7 05/08/20 9:16 AM EST documented as of this encounter Care Teams Machine Setter And Repairer Relationship Specialty Start Date End Date Leatha Vu FNP [address] [place] [address] PCP - General Family Medicine 01/30/24 documented as of this encounter
--- OUTSIDE RECORDS SUMMARY | 2025-01-31 07:47 | XMS_ITS | Encounter Summary ---
Author Organization [employer] Address [address] [place] [address] 7 [place] [address] Care Team Providers Care Wound Care Physician Name Role Phone Horace [facility] Primary Care Provider [phone] DewayneTalisha agarwale [facility] Primary Care Provider [phone] [place] [facility] Primary Care Provider [phone] Encounter Details Date Type Department Care Team (Latest Contact Info) Description 06/30/2021 Abstract [facility] CONVERSIONS Dental, Provider, DDS Social History Tobacco Use Types Packs/Day Years [...] Upcoming Encounters Date Type Department Care Team ( st Contact Info) Description 02/21/2025 1:00 PM EDT Office Visit [facility] MEDICINE [address] [place] [address] BoulderLeatha [facility] [address] [place] [address] 06/23/2025 8:00 AM EST Office Visit [facility] ADULT DENTAL [address] [place], [place] [phone] Selena Argueta [address] [place] [address] documented as of this encounter Visit Diagnoses Not on filedocumented in this encounter Care Teams Wound Care Physician Relationship Specialty Start Date End Date Leatha Vu [employer] [address] [place] [address] PCP - General Family Medicine 01/24/22 01/17/23 Rosana Garcia FNP [address] [place] [address] PCP - General Family Medicine 01/18/23 01/29/24 BoulderLeatha carson FNP [address] [place] [address] PCP - General Family Medicine 01/30/24 documented as of this encounter
--- OUTSIDE RECORDS SUMMARY | 2025-01-31 07:47 | XMS_ITS | Encounter Summary ---
Author Organization [employer] Address [address] [facility] 7t [place] [address] Care Team Providers Care Private Detective Name Role Phone Leatha Vu [employer] Primary Care Provider [phone] Reason for Visit * Reason Comments Med Refill Encounter Details Date Type Department Care Team ([facility] st Contact Info) Description 09/05/2024 Refill [facility] MEDICINE [address] [place] [address] Juana Gardiner MD [address] [place] [address] Social History Tobacco Use Types Packs/Day Years [...] Description 02/21/2025 1:00 PM EDT Office Visit [facility] MEDICINE [address] [place] [address] Leatha Vu FNP [address] [place] [address] 06/23/2025 8:00 AM EST Office Visit [facility] ADULT DENTAL [address] [place] [address] Kendall Selena [address] [place] [address] documented as of this encounter Visit Diagnoses Not on filedocumented in this encounter Additional Health Concerns Assessment Noted Time PHQ-9 Depression Total Score: 7 05/08/20 9:16 AM EST documented as of this encounter Care Teams Private Detective Relationship Specialty Start Date End Date Leatha Vu FNP [address] [place] [address] PCP - General Family Medicine 01/30/24 documented as of this encounter
--- OUTSIDE RECORDS SUMMARY | 2025-01-31 07:47 | XMS_ITS | Encounter Summary ---
Author Organization [employer] Address [address] [facility] 7 [place] [address] Care Team Providers Care Bread Jockey Name Role Phone Rosana Garcia [facility] Primary Care Provider [phone] [place] [facility] Primary Care Provider [phone] Reason for Visit * Reason Onset Date Comments Nurse Triage 04/24/2023 Encounter Details Date Type Department Care Team ([facility] st Contact Info) Description 04/24/2023 Telephone [facility] MEDICINE [address] [place] [address] Rosana Garcia FNP [address] [place] [address] Nurse Triage Social History Tobacco Use Types Packs/Day Years [...] encounter Miscellaneous Notes * Telephone Encounter - Brissa Castillo RN - 04/24/2023 4:03 PM EST Triage call Pt reports positive Covid test 04/24/23 @ 200pm Pt symptoms are fever low grade tactile, cough, , fatigue, bodyaches, headache. Pt is advised if temp of >103, difficulty breathing withchest pain/pressure seek evaluation in nearest Ed. Drink 6-8 glasses of liquid daily, warm decaf tea with honey /lemon, water, juices. cough drops for cough, 1-2tsp honey for cough/sore throat, humidi fier for dry air, tylenol/ibuprofen for discomfort. Isolation for 5 days starting day after tested.Pt is requesting paxlovid . Pt is [employer] 3rd constitution party televisit for paxlovid , . No further questions offered. Protocol Used: COVID-19 - Diagnosed or Suspected (Adult) Protocol-Based Disposition: Home Care Positive Triage Question: * COVID-19 diagnosed by positive lab test (e.g., PCR, rapid self-test kit) and mild symptoms (e.g.,cough, fever, others) and no complications or SOB * All higher-acuity triage questions were negative Care Advice Discussed: * Reassurance and Education - Positive COVID-19 Lab Test and Mild Symptoms * General Care Advice for COVID-19 Symptoms * Cough Medicines * Humidifier * Coughing Spells * Pain and Fever Medicines * Reasons To Call Back - Fever over 103 F (39.4 C) - Fever lasts over 3 days - Fever returns after being gone for 24 hours - Chest pain or difficulty breathing occurs - You become worse * COVID-19 - How to Protect Others - When You Are Sick With COVID-19 * Clean Your Hands Often * Telephone Encounter - Aries Bry - 04/24/2023 2:54 PM EST Symptom: COVID-19 Suspected Outcome: Schedule a same-day appointment or talk to a nurse or provider today Reason: Caller denied all higher acuity questions documented in this encounter Plan of Treatment Upcoming Encounters Date Type Department Care Team (Late st Contact Info) Description 02/21/2025 1:00 PM EDT Office Visit [facility] MEDICINE [address] [place] [address] Leatha Vu FNP [address] [place] [address] 06/23/2025 8:00 AM EST Office Visit [facility] ADULT DENTAL [address] [place] [address] Kendall, Selena [address] [place] [address] documented as of this encounter Visit Diagnoses Not on filedocumented in this encounter Additional Health Concerns Assessment Noted Time PHQ-9 Depression Total Score: 5 01/19/20 9:35 AM EDT documented as of this encounter Care Teams Bread Jockey Relationship Specialty Start Date End Date Rosana Garcia FNP [address] [place] [address] PCP - General Family Medicine 01/18/23 01/29/24 Leatha Vu FNP [address] [place] [address] PCP - General Family Medicine 01/30/24 documented as of this encounter
--- OUTSIDE RECORDS SUMMARY | 2025-01-31 07:47 | XMS_ITS | Encounter Summary ---
Author Organization [employer] Address [address] [facility] 7t [place] [address] Care Team Providers Care Rubber Printing Machine Operator Name Role Phone Leatha Vu DECAL TRANSFERRER Primary Care Provider [phone] Reason for Visit * Reason Comments Med Refill Encounter Details Date Type Department Care Team ([facility] st Contact Info) Description 11/21/2024 Refill [facility] MEDICINE [address] [place], [place] [phone] Danika Brambila DO [address] [place], [place] [phone] Social History Tobacco Use Types Packs/Day Years [...] Description 02/21/2025 1:00 PM EDT Office Visit [facility] MEDICINE [address] [place] [address] Leatha Vu FNP [address] [place] [address] 06/23/2025 8:00 AM EST Office Visit [facility] ADULT DENTAL [address] [place] [address] Kendall, Selena [address] [place] [address] documented as of this encounter Visit Diagnoses Not on filedocumented in this encounter Additional Health Concerns Assessment Noted Time PHQ-9 Depression Total Score: 7 05/08/20 9:16 AM EST documented as of this encounter Care Teams Rubber Printing Machine Operator Relationship Specialty Start Date End Date Leatha Vu FNP [address] [place] [address] PCP - General Family Medicine 01/30/24 documented as of this encounter
--- OUTSIDE RECORDS SUMMARY | 2025-01-31 07:47 | XMS_ITS | Encounter Summary ---
Author Organization [employer] Address [address] [facility] 7t [place] [address] Care Team Providers Care Head Of Human Resources Name Role Phone Rosana Garcia [facility] Primary Care Provider [phone] [place] [facility] Primary Care Provider [phone] Reason for Visit * Reason Comments Med Refill Encounter Details Date Type Department Care Team ([facility] st Contact Info) Description 08/02/2023 Refill [facility] MEDICINE [address] [place] [address] Rosana Garcia FNP [address] [place] [address] Social History Tobacco Use Types Packs/Day Years [...] Description 02/21/2025 1:00 PM EDT Office Visit [facility] MEDICINE [address] [place] [address] Leatha Vu FNP [address] [place] [address] 06/23/2025 8:00 AM EST Office Visit [facility] ADULT DENTAL [address] [place] [address] Kendall, Selena [address] [place] [address] documented as of this encounter Visit Diagnoses Not on filedocumented in this encounter Additional Health Concerns Assessment Noted Time PHQ-9 Depression Total Score: 5 01/19/20 23 9:35 AM EDT documented as of this encounter Care Teams Head Of Human Resources Relationship Specialty Start Date End Date Rosana Garcia FNP [address] [place] [address] PCP - General Family Medicine 01/18/23 01/29/24 HoraceLeatha carson FNP [address] [place] [address] PCP - General Family Medicine 01/30/24 documented as of this encounter
--- OUTSIDE RECORDS SUMMARY | 2025-01-31 07:47 | XMS_ITS | Encounter Summary ---
Author Organization [employer] Address [address] [facility] 7t [place] [address] Care Team Providers Care Family And Consumer Education Teacher Name Role Phone Leatha Vu [facility] Primary Care Provider [phone] Reason for Visit * Reason Comments Med Refill Encounter Details Date Type Department Care Team ([facility] st Contact Info) Description 01/11/2025 Refill [facility] MEDICINE [address] [place], [place] [phone] [facility] [address] [place] [address] Tinea pedis of both feet Social History Tobacco Use Types Packs/Day Years [...] 02/21/2025 1:00 PM EDT Office Visit [facility] MEDICINE [address] [place] [address] Leatha Vu FNP [address] [place] [address] 06/23/2025 8:00 AM EST Office Visit [facility] ADULT DENTAL [address] [place] [address] Kendall, Selena [address] [place] [address] documented as of this encounter Visit Diagnoses Diagnosis Tinea pedis of both feet documented in this encounter Additional Health Concerns Assessment Noted Time PHQ-9 Depression Total Score: 7 05/08/20 9:16 AM EST documented as of this encounter Care Teams Family And Consumer Education Teacher Relationship Specialty Start Date End Date Leatha Vu FNP [address] [place] [address] PCP - General Family Medicine 01/30/24 documented as of this encounter
--- OUTSIDE RECORDS SUMMARY | 2025-01-31 07:47 | XMS_ITS | Encounter Summary ---
Author Organization [employer] Address [address] [facility] 7 [place] [address] Care Team Providers Care Livestock Trucker Name Role Phone Rosana Garcia [facility] Primary Care Provider [phone] OkolonaLeatha [facility] Primary Care Provider [phone] Reason for Visit * Reason Comments Med Refill Encounter Details Date Type Department Care Team ([facility] st Contact Info) Description 03/06/2023 Refill [facility] MEDICINE [address] [place] [address] [facility] [address] [place] [address] Social History Tobacco Use Types Packs/Day Years [...] worried about losing housing in the future 03/05/[address] you li ve. Do you have problems with any of the following? None of the above 03/05/2023 Food Insecurity Answer Date Recorded Within the past 12 months, y ou worried that your food would run out before you got money to buy more: Never True 03/05/2023 Within the past 12 months,th e food you bought just didn't last and you didn't have enough money to get more: Never True 12/2022 Transportation Answer Date Recorded In the past 12 months, has l ack of transportation kept you from medical appts, meetings, work or from getting things needed for daily living? No 03/05/2023 Utilities Answer Date Recorded In the past 12 months, has t he electric, gas, oil or water company threatened to shut off services in your home? No 03/05/2023 Depression Answer Date Recorded Patient Health Questionnaire-2 [...] Office Visit [facility] MEDICINE [address] [place] [address] Leatha Vu FNP [address] [place] [address] 06/23/2025 8:00 AM EST Office Visit [facility] ADULT DENTAL [address] [place] [address] Kendall, Selena [address] [place] [address] documented as of this encounter Visit Diagnoses Not on filedocumented in this encounter Additional Health Concerns Assessment Noted Time PHQ-9 Depression Total Score: 5 01/19/20 23 9:35 AM EDT documented as of this encounter Care Teams Livestock Trucker Relationship Specialty Start Date End Date Rosana Garcia FNP [address] [place] [address] PCP - General Family Medicine 01/18/23 01/29/24 OkolonaLeatha carson FNP [address] [place] [address] PCP - General Family Medicine 01/30/24 documented as of this encounter
[2025-01-31 08:31] VITALS: PULSE 60; O2SAT 94
== END 2025-01-31 07:46 | disposition home or self-care (01) ==
LOC: HO.RESP 07:45
PROVIDERS: PCP Registered Nurse; Visit Provider Registered Nurse
DX: J44.9 Chronic obstructive pulmonary disease, unspecified (principal)
CPT/HCPCS: 94010; 94640; 94727; 94729

== ENCOUNTER → 2025-01-31 07:48 | Outpatient (BNV) | payer OTHER, SELFPAY | PROVIDERS: PCP Registered Nurse; Visit Provider Internal Medicine Pulmonary Disease | DX: J98.4 Other disorders of lung (principal) | CPT/HCPCS: 94060; 94727; 94729 ==

== ENCOUNTER 2025-05-07 08:24 | Outpatient (REF) | payer OTHER, SELFPAY ==
--- NOTE | ~2025-05-07 | US_ITS ---
CLINICAL HISTORY: Z87.442 - Personal history of urinary calculi US renal with Color Doppler Comparison: None Findings: Right kidney normal size and echotexture, 10.4 cm length. No hydronephrosis, calculus or mass. Normal color flow. Left kidney normal size and echotexture, 11.0 cm length. No hydronephrosis, calculus or mass. Normal color flow. Impression: 1. Normal renal ultrasound. This document has been electronically signed by: Austin Roberts MD on 05/08/2025 11:41:26
== END 2025-05-07 08:25 | disposition home or self-care (01) ==
LOC: HO.HMGCX 08:24
PROVIDERS: PCP Urology; Visit Provider Urology
DX: Z87.442 Personal history of urinary calculi (principal)
CPT/HCPCS: 76775

== ENCOUNTER → 2025-05-07 08:27 | Outpatient (BNV) | payer OTHER, SELFPAY | PROVIDERS: PCP Urology; Visit Provider Radiology Diagnostic Radiology | DX: Z87.442 Personal history of urinary calculi (principal) | CPT/HCPCS: 76775 ==

== ENCOUNTER 2025-05-16 08:40 | Outpatient (REF) | payer OTHER, SELFPAY | END 2025-05-16 08:41 | disposition home or self-care (01) | LOC: HO.LAB 08:40 | PROVIDERS: PCP Urology; Visit Provider Urology | DX: Z12.5 Encounter for screening for malignant neoplasm of prostate (principal); N40.1 Benign prostatic hyperplasia with lower urinary tract symptoms; R31.29 Other microscopic hematuria; F17.200 Nicotine dependence, unspecified, uncomplicated; R39.14 Feeling of incomplete bladder emptying; Z87.442 Personal history of urinary calculi | CPT/HCPCS: 51798; 81003; 88112; 99212 ==

== ENCOUNTER 2025-05-16 08:40 | Outpatient (AMB) | payer OTHER, SELFPAY ==
--- OUTSIDE RECORDS SUMMARY | 2025-05-16 08:53 | XMS_ITS | Encounter Summary ---
Author Organization [employer] Address [address] [place] [address] 7 [place] [address] Care Team Providers Care Contract Law Specialist Name Role Phone HoraceLeatha [facility] Primary Care Provider [phone] Rosana Garcia [facility] Primary Care Provider [phone] Leatha Vu [facility] Primary Care Provider [phone] Encounter Details Date Type Department Care Team (Latest Contact Info) Description 06/30/2021 Abstract [facility] CONVERSIONS Dental, Provider, DDS Social History Tobacco [...] Care Team ( st Contact Info) Description 06/23/2025 8:00 AM EST Office Visit [facility] ADULT DENTAL [address] [place] [address] Kendall, Selena [address] [place] [address] 07/28/2025 9:00 AM EST Office Visit [facility] MEDICINE [address] [place] [address] Leatha Vu FNP [address] [place] [address] documented as of this encounter Visit Diagnoses Not on filedocumented in this encounter Care Teams Contract Law Specialist Relationship Specialty Start Date End Date Leatha Vu FNP [address] [place] [address] PCP - General Family Medicine 01/24/22 01/17/23 Rosana Garcia FNP [address] [place] [address] PCP - General Family Medicine 01/18/23 01/29/24 ConstableLeatha carson FNP [address] [place] [address] PCP - General Family Medicine 01/30/24 documented as of this encounter
--- OUTSIDE RECORDS SUMMARY | 2025-05-16 08:53 | XMS_ITS | Encounter Summary ---
Author Organization [employer] Address [address] [facility] 7t [place] [address] Care Team Providers Care Dependency Case Manager Name Role Phone Leatha Vu [facility] Primary Care Provider [phone] Reason for Visit * Reason Comments Med Refill Encounter Details Date Type Department Care Team ([facility] st Contact Info) Description 12/04/2024 Refill [facility] MEDICINE [address] [place], [place] [phone] Leatha Vu [facility] [address] [place] [address] Social History Tobacco Use Types Packs/Day Years [...] Care Team (Late st Contact Info) Description 06/23/2025 8:00 AM EST Office Visit [facility] ADULT DENTAL [address] [place] [address] Kendall, Selena [address] [place] [address] 07/28/2025 9:00 AM EST Office Visit [facility] MEDICINE [address] [place] [address] Leatha Vu FNP [address] [place] [address] documented as of this encounter Visit Diagnoses Not on filedocumented in this encounter Additional Health Concerns Assessment Noted Time PHQ-9 Depression Total Score: 7 05/08/20 9:16 AM EST documented as of this encounter Care Teams Dependency Case Manager Relationship Specialty Start Date End Date Leatha Vu FNP [address] [place] [address] PCP - General Family Medicine 01/30/24 documented as of this encounter
--- OUTSIDE RECORDS SUMMARY | 2025-05-16 08:53 | XMS_ITS | Encounter Summary ---
Author Organization [employer] Address 75 [facility] 7 [place] [address] Care Team Providers Care Wash Driller Name Role Phone Rosana Garcia GRANITE INSTALLER Primary Care Provider [phone] [facility] Primary Care Provider [phone] Reason for Visit * Reason Onset Date Comments Med Refill 11/02/2023 Encounter Details Date Type Department Care Team (Late st Contact Info) Description 11/02/2023 Telephone [facility] MEDICINE [address] [place] [address] Rosana Garcia FNP [address] [place] [address] Med Refill Social History Tobacco Use Types [...] Miscellaneous Notes * Telephone Encounter - Danika Ortega LPN - 11/03/2023 9:47 AM EDT Medication pended to provider. * Telephone Encounter - Ana Villavicencio - 11/03/2023 9:39 AM EDT Tc from pt requesting a refill for Ventolin HFA 108 (90 Base) MCG/ACT inhaler, sports book writer contact pharmacy pt does not have [...] Base) MCG/ACT inhaler To be sent to: [facility] #[id number] - [place] - [address] documented in this encounter Plan of Treatment Upcoming Encounters Date Type Department Care Team (Late st Contact Info) Description 06/23/2025 8:00 AM EST Office Visit [facility] ADULT DENTAL [address] [place] [address] Kendall, Selena [address] [place] [address] 07/28/2025 9:00 AM EST Office Visit [facility] MEDICINE [address] [place] [address] Leatha Vu FNP [address] [place] [address] documented as of this encounter Visit Diagnoses Not on filedocumented in this encounter Additional Health Concerns Assessment Noted Time PHQ-9 Depression Total Score: 5 01/19/20 9:35 AM EDT documented as of this encounter Care Teams Wash Driller Relationship Specialty Start Date End Date Rosana Garcia FNP [address] [place] [address] PCP - General Family Medicine 01/18/23 01/29/24 Leatha Vu FNP [address] [place] [address] PCP - General Family Medicine 01/30/24 documented as of this encounter
--- OUTSIDE RECORDS SUMMARY | 2025-05-16 08:53 | XMS_ITS | Encounter Summary ---
Author Organization [employer] Address 75 [facility] 7 [place] [address] Care Team Providers Care Manufacturing Mechanic Name Role Phone Rosana Garcia SUPERVISOR AIR CONDITIONING INSTALLER Primary Care Provider [phone] [facility] SUPERVISOR AIR CONDITIONING INSTALLER Primary Care Provider [phone] Reason for Visit * Reason Onset Date Comments Nurse Triage 04/24/2023 Encounter Details Date Type Department Care Team ([facility] st Contact Info) Description 04/24/2023 Telephone [facility] MEDICINE [address] [place] [address] Rosana Garcia FNP [address] [place] [address] Nurse Triage Social History Tobacco Use Types [...] tested.Pt is requesting paxlovid . Pt is [email or web address] 3rd republican televisit for paxlovid , . No further [...] Your Hands Often * Telephone Encounter - Ariesyajaira Londono - 04/24/2023 2:54 PM EST Symptom: COVID-19 Suspected Outcome: Schedule a same-day appointment or talk to a nurse or provider today Reason: Caller denied all higher acuity questions documented in this encounter Plan of Treatment Upcoming Encounters Date Type Department Care Team (Late st Contact Info) Description 06/23/2025 8:00 AM EST Office Visit [facility] ADULT DENTAL [address] [place] [address] Kendall, Selena [address] [place] [address] 07/28/2025 9:00 AM EST Office Visit [facility] MEDICINE [address] [place] [address] Leatha Vu FNP [address] [place] [address] documented as of this encounter Visit Diagnoses Not on filedocumented in this encounter Additional Health Concerns Assessment Noted Time PHQ-9 Depression Total Score: 5 01/19/20 9:35 AM EDT documented as of this encounter Care Teams Manufacturing Mechanic Relationship Specialty Start Date End Date Rosana Garcia FNP [address] [place] [address] PCP - General Family Medicine 01/18/23 01/29/24 Leatha Vu FNP [address] [place] [address] PCP - General Family Medicine 01/30/24 documented as of this encounter
--- OUTSIDE RECORDS SUMMARY | 2025-05-16 08:53 | XMS_ITS | Encounter Summary ---
Author Organization [employer] Address 75 [facility] 7t [place] [address] Care Team Providers Care Managed Care Liaison Name Role Phone Leatha Vu [facility] Primary Care Provider [phone] Reason for Visit * Reason Comments Med Refill Encounter Details Date Type Department Care Team ([facility] st Contact Info) Description 01/11/2025 Refill [facility] MEDICINE [address] [place], [place] [phone] [facility] [address] [place] [address] Tinea pedis of both feet Social History [...] Description 06/23/2025 8:00 AM EST Office Visit [facility] ADULT DENTAL [address] [place] [address] Kendall, Selena [address] [place] [address] 07/28/2025 9:00 AM EST Office Visit [facility] MEDICINE [address] [place] [address] Leatha Vu FNP [address] [place] [address] documented as of this encounter Visit Diagnoses Diagnosis Tinea pedis of both feet documented in this encounter Additional Health Concerns Assessment Noted Time PHQ-9 Depression Total Score: 7 05/08/20 9:16 AM EST documented as of this encounter Care Teams Managed Care Liaison Relationship Specialty Start Date End Date Leatha Vu FNP [address] [place] [address] PCP - General Family Medicine 01/30/24 documented as of this encounter
--- OUTSIDE RECORDS SUMMARY | 2025-05-16 08:53 | XMS_ITS | Encounter Summary ---
Author Organization [employer] Address [address] [place] [address] 7 [place] [address] Care Team Providers Care Dedicated Intermodal Truck Driver Name Role Phone Leatha Vu [facility] Primary Care Provider [phone] Reason for Visit * Reason Onset Date Comments Med Refill 04/02/2025 Encounter Details Date Type Department Care Team ([facility] st Contact Info) Description 04/02/2025 Refill [facility] MEDICINE [address] [place], [place] [phone] [facility] [address] [place] [address] Chronic obstructive pulmonary disease, unspecified COPD type (CMS/HCC) ([facility]) Social History Tobacco Use Types Packs/Day Years [...] Office Visit [facility] ADULT DENTAL [address] [place] [address] Kendall, Selena [address] [place] [address] 07/28/2025 9:00 AM EST Office Visit [facility] MEDICINE [address] [place] [address] Leatha Vu FNP [address] [place] [address] documented as of this encounter Visit Diagnoses Diagnosis Chronic obstructive pulmonary disease, unspecified COPD type (CMS/HCC) ([facility]) documented in this encounter Additional Health Concerns Assessment Noted Time PHQ-9 Depression Total Score: 7 05/08/20 9:16 AM EST documented as of this encounter Care Teams Dedicated Intermodal Truck Driver Relationship Specialty Start Date End Date Leatha Vu FNP [address] [place] [address] PCP - General Family Medicine 01/30/24 documented as of this encounter
--- OUTSIDE RECORDS SUMMARY | 2025-05-16 08:53 | XMS_ITS | Encounter Summary ---
Author Organization [employer] Address 75 [facility] 7t [place] [address] Care Team Providers Care Masonry Contractor Name Role Phone Leatha Vu [facility] Primary Care Provider [phone] Reason for Visit * Reason Comments Med Refill Encounter Details Date Type Department Care Team ([facility] st Contact Info) Description 08/29/2024 Refill [facility] MEDICINE [address] [place], [place] [phone] Leatha Vu [facility] [address] [place] [address] Social History Tobacco Use Types Packs/Day Years [...] Description 06/23/2025 8:00 AM EST Office Visit [facility] ADULT DENTAL [address] [place] [address] Kendall, Selena [address] [place] [address] 07/28/2025 9:00 AM EST Office Visit [facility] MEDICINE [address] [place] [address] Leatha Vu FNP [address] [place] [address] documented as of this encounter Visit Diagnoses Not on filedocumented in this encounter Additional Health Concerns Assessment Noted Time PHQ-9 Depression Total Score: 7 05/08/20 9:16 AM EST documented as of this encounter Care Teams Masonry Contractor Relationship Specialty Start Date End Date Leatha Vu FNP [address] [place] [address] PCP - General Family Medicine 01/30/24 documented as of this encounter
--- OUTSIDE RECORDS SUMMARY | 2025-05-16 08:53 | XMS_ITS | Clinical Summary ---
Author Organization [facility] Prior to 10/26/[address] [place] [address] Care Team Providers Care Advanced Manufacturing Technician Name Role Phone Unavailable Primary Care Provider [...]
--- OUTSIDE RECORDS SUMMARY | 2025-05-16 08:53 | XMS_ITS | Clinical Summary ---
Author Organization [employer] Address [address] [place] [address] 7 [place] [address] Care Team Providers Care Ski Production Supervisor Name Role Phone Leatha Vu [facility] Primary Care Provider Allergies Active Allergy Reactions Criticality Noted Date Comments Codeine 12/13/2011 Other reaction(s): BURNING IN STOMACH Medications terbinafine (LamISIL AT) 1 % creamIndications: Tinea pedis of both feet Apply topically 2 times daily. 42 g 02/16/20 24 Active ipratropium (Atrovent) 17 MCG/ACT inhalerIndication s:Chronic obstructive pulmonary disease, unspecified COPD type (CMS/HCC) (HCC) INHALE 2 PUFFS BY MOUTH FOUR TIMES DAILY NEEDED 12.9 g 11 11/02/19 25 Active Aspirin Low Dose 81 MG EC tablet TAKE 1 TABLET(81 MG) BY MOUTH DAILY 90 tablet 3 11/28/19 25 Active meloxicam (Mobic) 7.5 MG tabletIndications :Arthropathy of lumbar facet joint TAKE 1 TABLET(7.5 MG) BY MOUTH IN THE MORNING 90 tablet 3 12/17/19 25 Active Ventolin HFA 108 (90 Base) MCG/ACT inhalerIndication s:Chronic obstructive pulmonary disease, unspecified COPD type (CMS/HCC) (HCC) Inhale 2 puffs every 4 (four) hours if needed for wheezing. 18 g 11 01/04/20 25 Active clotrimazole (Lotrimin) 1 % creamIndications: Tinea pedis of both feet APPLY TOPICALLY TO THE AFFECTED AREA TWICE DAILY 30 g 01/11/20 25 Active metoprolol succinate XL (Toprol-XL) 50 MG 24 hr tablet TAKE 1 TABLET(50 MG) BY MOUTH DAILY. DO NOT CRUSH OR CHEW 90 tablet 3 09/08/20 25 Active Tiotropium [place] (Spiriva Respimat) 2.5 MCG/ACT aerosol solutionIndicatio ns:Chronic obstructive pulmonary disease, unspecified COPD type (CMS/HCC) ([facility]) Inhale 2 puffs Once per day. INHALE 2 PUFFS BY MOUTH AT THE SAME TIME EVERY DAY 4 g 11 03/17/20 25 Active tamsulosin (Flomax) 0.4 MG 24 hr capsule TAKE 1 CAPSULE(0.4 MG) BY MOUTH AT BEDTIME 90 capsule 3 04/02/20 25 Active rosuvastatin (Crestor) 20 MG tabletIndications :Mixed hyperlipidemia Take 1 tablet (20 mg) by mouth Once per day. 30 tablet 11 04/28/20 25 026 Active rosuvastatin (Crestor) 10 MG tabletIndications :Essential hypertension Take 1 tablet (10 mg) by mouth at bedtime. 30 tablet 11 02/22/20 25 025 Discontinued Active Problems Problem Noted Date Diagnosed Date Cocaine use 11/19/2024 Tobacco use disorder 05/08/2024 Mood disorder 05/08/2024 Overview (05/08/2024): [facility]to Remilisa with [facility]. Reports previously on many [...] Hyperlipidemia 08/20/2018 Mixed bipolar affective disorder, moderate (CMS/ HCC) 05/04/2015 Obesity 01/19/2015 Chronic obstructive lung disease 05/24/2013 Overview (05/08/2024): Requesting PA for spiriva respimat. 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 Followed by pulmonology. Established with LDLCT program Impaired fasting glucose 04/11/2013 Erectile dysfunction 04/25/2012 Insomnia due to mental disorder 12/13/2011 First degree atrioventricular block 12/08/2011 Encounters Date Type Department Care Team Description 04/28/2025 3:15 PM EST Office Visit [facility] MEDICINE [address] [place] [address] [facility] Chronic obstructive pulmonary disease, unspecified COPD type (CMS/HCC) ([facility]) (Primary Dx); Mixed hyperlipidemia; Mood disorder (CMS/HCC); Essential hypertension 04/28/2025 Telephone [facility] [address] [place], [place] [phone] [facility] Med Refill 04/28/2025 Travel 04/23/2025 Telephone [facility] MEDICINE [address] [place] [address] [facility] chart prep 04/02/2025 Refill [facility] MEDICINE [address] [place] [address] [facility] Chronic obstructive pulmonary disease, unspecified COPD type (CMS/HCC) ([facility]) 03/31/2025 Refill [facility] MEDICINE [address] [place] [address] Rosana Garcia FNP 03/27/2025 Telephone [facility] [address] [place] [address] [facility] Prior Authorization (PA: Tiotropium [place] (Spiriva Respimat) 2.5 MCG/ACT aerosol solution ) 03/14/2025 Refill [facility] [address] [place] [address] [facility] Chronic obstructive pulmonary disease, unspecified COPD type (CMS/HCC) ([facility]) 02/21/2025 1:00 PM EDT Office Visit [facility] [address] [place] [address] [facility] Essential hypertension (Primary Dx); Chronic obstructive pulmonary disease, unspecified COPD type (CMS/HCC); Poor dentition 02/21/2025 Travel 02/20/2025 Travel 02/20/2025 Telephone [facility] MEDICINE [address] [place], [place] [phone] [facility] chart prep from Last 3 Months Immunizations Immunization Administration [...] Sign Reading Time Taken Comments Blood Pressure 140/90 04/28/2025 3:17 PM EST Pulse 88 04/28/2025 3:17 PM EST Temperature 35.9 C (96.7 F) 04/28/2025 3:17 PM EST Respiratory Rate 20 04/28/2025 3:17 PM EST Oxygen Saturation 98% 05/08/2024 9:14 AM EST Inhaled Oxygen Concentration - - Weight 93.6 kg (206 lb 6.4 oz) 04/28/2025 3:17 P M EST Height 172.7 cm (5' 8 ) 04/28/2025 3:17 PM EST Body Mass Index 31.38 04/28/2025 3:17 PM EST Plan of Treatment Upcoming Encounters Date Type Department Care Team (Late st Contact Info) Description 06/23/2025 8:00 AM EST Office Visit [facility] ADULT DENTAL [address] [place] [address] Kendall, Selena [address] [place] [address] 07/28/2025 9:00 AM EST Office Visit [facility] MEDICINE [address] [place] [address] Douglas, Leatha, SHIPPING CLERK PACKING [address] [place] [address] Health Maintenance Due Date Last Done Comments CT Colonography 1961 Colonoscopy 1961 Colorectal Cancer Screening 1961 FIT DNA/Cologuard 1961 FIT 1961 FOBT 1961 Sigmoidoscopy 1961 RSV Patients and Patients Aged 60 years or older (1 - Risk 50-74 years 1-dose series) 2011 Zoster Vaccines (2 of 3) 06/14/2013 04/19/2013 Dental Prophylaxis 06/19/2014 12/16/2013, 03/28/2013 Pneumococcal Vaccine: 50+ Years (2 of 2 - PCV) 04/28/2015 04/28/2014 COVID-19 Vaccine (3 - season) 2025 09/03/2020, 08/06/2020 Influenza Vaccine (#1) 2025 , 04/26/2021, 07/17/2020, Additional history exists Depression Screening 05/08/2025 05/08/2024, 05/08/20 24 Dental Oral Exam 06/13/2025 12/10/2024, 06/2021, 09/24/2013, Additional history exists Alcohol/Substance Use Screening 11/18/2025 11/18/2024 Dental X-Ray: Bitewings 12/11/2025 12/11/19, 06/30/2021, 09/24/2013 SDOH Screening 02/13/2026 02/13/2025 Disability Screening 02/20/2026 02/20/2025 Tobacco Screening 04/30/2026 04/30/2025 Dental X-Ray: Full Mouth 12/12/2027 025, 06/30/2021, [...] Procedure Name Priority Date/Time Associated Diagnosis Comments INTRAORAL - COMPLETE SERIES OF RADIOGRAPHIC IMAGES Routine 12/10/2024 8:00 AM EDT PERIODIC ORAL EVALUATION - ESTABLISHED PATIENT Routine 12/10/2024 8:00 AM EDT LIPID PANEL, STANDARD Routine 11/20/2024 6:45 AM EDT Essential hypertension ZZZ HISTORICAL HEPATITIS C ANTIBODY RFLX Routine 12/03/2020 6:25 AM EDT ZZZ HISTORICAL HEPATITIS B SURFACE ANTIGEN* Routine 12/03/2020 6:25 AM EDT PROPHYLAXIS - ADULT Routine 12/16/2013 1 2:00 AM EDT from Last 3 Months or Most Recently Relevant to Health Maintenance Results * (ABNORMAL) Lipid Panel, Standard (11/20/2024 6:45 AM EDT) Triglycerides 162(H) <150 mg/dL [facility] Comment:Desirable Triglyceri de: less than 150 mg/dLBorderline High Triglyceride 150-199 mg/dLHigh Triglyceride: 200-499 mg/dLVery High Triglyceride: greater than or equal to 5OO mg/dL Cholesterol 180 <200 mg/dL [facility] Comment:Desirable Cholestero l: less than 200 mg/dLBorderline High Cholesterol: 200-239 mg/dLHigh Cholesterol: greater than 239 mg/dL LDL Cholesterol Calculated 111(H) <100 mg/dL [facility] Comment:Desirable LDL: less than 100 mg/dLNear Optimal/Above Optimal LDL: 110- 129 mg/dLBorderline High LDL: 130-159 mg/dLHigh LDL: 160-189 mg/dLVery High LDL: greater than or equal to 190 mg/dL HDL Cholesterol 37(L) >40 mg/dL [facility] Comment:Desirable HDL: great er than 40 mg/dL Note: This HDL assay may give artificially low results in patients with liver disease. Blood Venous blood specimen / Unknown 11/20/2024 6:45 AM EDT 11/20/2024 6:45 AM EDT [facility] SHIPPING CLERK PACKING LAB BLOOD ORDERABLES Final Re sult [facility] [address] [place] [address] [phone] * HEPATITIS C ANTIBODY RFLX (12/03/2020 6:25 AM EDT) Hepatitis C Antibody Nonreactive Nonreactive [facility] Comment: Antibodies to HCV not detected; does not exclude early acute HCV infection. 12/03/2020 6:25 AM EDT Indu Chavez SHIPPING CLERK PACKING HISTORICAL/NON ORDERABLE LABS Final Result Performing Organization Address [facility]/ZIP Co de Phone Number [facility] [address] * HEPATITIS B SURFACE ANTIGEN* (12/03/2020 6:25 AM EDT) Hepatitis B Surface Antigen Negative Negative [facility] [...] of detection of this assay. The [employer] Sn[employer] Container Inspector HIV Ag/Ab Combo assay result and supplemental assay results should be interpreted in conjunction with the patient's clinical presentation, history and other laboratory results. If the results are inconsistent with clinical evidence, additional testing is suggested to confirm the result. 12/03/2020 6:25 AM EDT Indu RANDP HISTORICAL/NON ORDERABLE LABS Final Result [facility] [address] from Last 3 Months or Most Recently Relevant to Health Maintenance Insurance [facility] < [address] [place] [address] Care Teams Ski Production Supervisor Relationship Specialty Start Date End Date Leatha Vu FNP [address] [place] [phone] PCP - General Family Medicine 01/30/24
--- OUTSIDE RECORDS SUMMARY | 2025-05-16 08:53 | XMS_ITS | Encounter Summary ---
Author Organization [employer] Address 75 [facility] 7t [place] [address] Care Team Providers Care Psychologist Educational Name Role Phone Leatha Vu NATIONAL SALES TRAINER Primary Care Provider [phone] Reason for Visit * Reason Comments Med Refill Encounter Details Date Type Department Care Team ([facility] st Contact Info) Description 09/05/2024 Refill [facility] MEDICINE [address] [place] [address] Juana Gardiner MD [address] [place] [address] Social History Tobacco Use Types Packs/Day Years [...] [facility] ADULT DENTAL [address] [place] [address] Kendall, Selena [address] [place] [address] 07/28/2025 9:00 AM EST Office Visit [facility] MEDICINE [address] [place] [address] Leatha Vu FNP [address] [place] [address] documented as of this encounter Visit Diagnoses Not on filedocumented in this encounter Additional Health Concerns Assessment Noted Time PHQ-9 Depression Total Score: 7 05/08/20 9:16 AM EST documented as of this encounter Care Teams Psychologist Educational Relationship Specialty Start Date End Date Leatha Vu FNP [address] [place] [address] PCP - General Family Medicine 01/30/24 documented as of this encounter
--- OUTSIDE RECORDS SUMMARY | 2025-05-16 08:53 | XMS_ITS | Encounter Summary ---
Author Organization [employer] Address 75 [facility] 7t [place] [address] Care Team Providers Care Mailing Machine Operator Name Role Phone Rosana Garcia [facility] Primary Care Provider [phone] Needles [facility] Primary Care Provider [phone] Reason for Visit * Reason Comments Med Refill Encounter Details Date Type Department Care Team ([facility] st Contact Info) Description 08/24/2023 Refill [facility] MEDICINE [address] [place] [address] Rosana Garcia FNP [address] [place] [address] Social History Tobacco Use Types Packs/Day Years [...] [facility] ADULT DENTAL [address] [place] [address] Kendall, Selena [address] [place] [address] 07/28/2025 9:00 AM EST Office Visit [facility] MEDICINE [address] [place] [address] Leatha Vu FNP [address] [place] [address] documented as of this encounter Visit Diagnoses Not on filedocumented in this encounter Additional Health Concerns Assessment Noted Time PHQ-9 Depression Total Score: 5 01/19/20 23 9:35 AM EDT documented as of this encounter Care Teams Mailing Machine Operator Relationship Specialty Start Date End Date Rosana Garcia FNP [address] [place] [address] PCP - General Family Medicine 01/18/23 01/29/24 Leatha Vu FNP [address] [place] [address] PCP - General Family Medicine 01/30/24 documented as of this encounter
--- OUTSIDE RECORDS SUMMARY | 2025-05-16 08:53 | XMS_ITS | Encounter Summary ---
Author Organization [employer] Address [address] [place] [address] 7 [place] [address] Care Team Providers Care Geophysical Engineer Name Role Phone [facility] Primary Care Provider William Garcianne [facility] Primary Care Provider [phone] [facility] Primary Care Provider [phone] Reason for Visit * Reason Comments Med Refill Encounter Details Date Type Department Care Team (Late st Contact Info) Description 08/15/2022 Refill [facility] MEDICINE [address] [place] [address] [facility] [address] [place] [address] Wheezing Social History Tobacco Use Types Packs/Day [...] Description 06/23/2025 8:00 AM EST Office Visit [facility] ADULT DENTAL [address] [place] [address] Selena Argueta [address] [place] [address] 07/28/2025 9:00 AM EST Office Visit [facility] MEDICINE [address] [place] [address] [facility] [address] [place] [address] documented as of this encounter Visit Diagnoses Diagnosis Wheezing documented in this encounter Care Teams Geophysical Engineer Relationship Specialty Start Date End Date Leatha Vu FNP [address] [place] [address] PCP - General Family Medicine 01/24/22 01/17/23 Rosana Garcia FNP [address] [place] [address] PCP - General Family Medicine 01/18/23 01/29/24 Leatha Vu FNP [address] [place] [address] PCP - General Family Medicine 01/30/24 documented as of this encounter
--- OUTSIDE RECORDS SUMMARY | 2025-05-16 08:53 | XMS_ITS | Encounter Summary ---
Author Organization [employer] Address [address] [facility] 7 [place] [address] Care Team Providers Care Blasting Entryman Name Role Phone Rosana Garcia [facility] Primary Care Provider [phone] [facility] Primary Care Provider [phone] Reason for Visit * Reason Comments Med Refill Encounter Details Date Type Department Care Team ([facility] st Contact Info) Description 03/06/2023 Refill [facility] [address] [place] [address] [facility] [address] [place] [address] Social History Tobacco Use Types Packs/Day Years [...] Description 06/23/2025 8:00 AM EST Office Visit [facility] [address] [place] [address] Kendall, Selena [address] [place] [address] 07/28/2025 9:00 AM EST Office Visit [facility] [address] [place] [address] Leatha Vu FNP [address] [place] [address] documented as of this encounter Visit Diagnoses Not on filedocumented in this encounter Additional Health Concerns Assessment Noted Time PHQ-9 Depression Total Score: 5 01/19/20 23 9:35 AM EDT documented as of this encounter Care Teams Blasting Entryman Relationship Specialty Start Date End Date Rosana Garcia FNP [address] [place] [address] PCP - General Family Medicine 01/18/23 01/29/24 Leatha Vu FNP [address] [place] [id number] PCP - General Family Medicine 01/30/24 documented as of this encounter
--- OUTSIDE RECORDS SUMMARY | 2025-05-16 08:53 | XMS_ITS | Encounter Summary ---
Author Organization [employer] Address [address] [facility] 7t [place] [address] Care Team Providers Care Customer Service Clerk Name Role Phone Rosana Garcia [facility] Primary Care Provider [phone] [facility] Primary Care Provider [phone] Reason for Visit * Reason Comments Med Refill Encounter Details Date Type Department Care Team ([facility] st Contact Info) Description 08/02/2023 Refill [facility] [address] [place] [address] Rosana Garcia FNP [address] [place] [address] Social History Tobacco Use Types Packs/Day Years [...] Description 06/23/2025 8:00 AM EST Office Visit [facility] [address] [place] [address] Kendall, Selena [address] [place] [address] 07/28/2025 9:00 AM EST Office Visit [facility] [address] [place] [address] Leatha Vu FNP [address] [place] [address] documented as of this encounter Visit Diagnoses Not on filedocumented in this encounter Additional Health Concerns Assessment Noted Time PHQ-9 Depression Total Score: 5 01/19/20 23 9:35 AM EDT documented as of this encounter Care Teams Customer Service Clerk Relationship Specialty Start Date End Date Rosana Garcia FNP [address] [place] [address] PCP - General Family Medicine 01/18/23 01/29/24 Leatha Vu FNP [address] [place] [id number] PCP - General Family Medicine 01/30/24 documented as of this encounter
--- OUTSIDE RECORDS SUMMARY | 2025-05-16 08:53 | XMS_ITS | Encounter Summary ---
Author Organization [employer] Address [address] [facility] 7t [place] [address] Care Team Providers Care Counting Machine Operator Name Role Phone Leatha Vu POLICE DEPARTMENT SECRETARY Primary Care Provider [phone] Reason for Visit * Reason Comments Med Refill Encounter Details Date Type Department Care Team ([facility] st Contact Info) Description 11/21/2024 Refill [facility] [address] [place], [place] [phone] Danika Brambila DO [address] [place], [place] [phone] Social History Tobacco Use Types Packs/Day Years [...] Description 06/23/2025 8:00 AM EST Office Visit [facility] [address] [place] [address] Kendall Selena [address] [place] [address] 07/28/2025 9:00 AM EST Office Visit [facility] [address] [place] [address] Leatha Vu FNP [address] [place] [address] documented as of this encounter Visit Diagnoses Not on filedocumented in this encounter Additional Health Concerns Assessment Noted Time PHQ-9 Depression Total Score: 7 05/08/20 9:16 AM EST documented as of this encounter Care Teams Counting Machine Operator Relationship Specialty Start Date End Date Leatha Vu FNP [address] [place] [address] PCP - General Family Medicine 01/30/24 documented as of this encounter
--- NOTE | 2025-05-16 09:01 | A.OFFVIS_ITS ---
Intake Visit Reasons: US follow up Intake Note: 65 year old male presents today for a follow up last PVR: PVR: 19 mls renal US was completed 05/08/2025 labs BUN: 15 CREATININE:1 PSA: not completed Allergies codeine (CODEINE) Allergy (Intermediate, Verified 05/16/25 09:01) STOMACH UPSET Medication List - Last Reconciled 05/16/25 by Brooke Gore MD albuterol sulfate 90 mcg/actuation 1 puff inhalation DAILY aspirin 81 mg PO DAILY atorvastatin 80 mg PO DAILY ipratropium bromide 17 mcg/actuation (Atrovent HFA) 2 puffs inhalation DAILY meloxicam 7.5 mg PO DAILY metoprolol succinate ER 50 mg PO DAILY tiotropium bromide 2.5 mcg/actuation 2 puffs inhalation DAILY HPI Comments Details: 05/16/25-- History of Present Illness The patient is a 65 year old male presenting for a follow-up visit for kidney stone monitoring and PSA screening. A recent renal ultrasound performed on 05/07/2025 was normal and did not show any recurrent renal calculi. He has a history of being prescribed tamsulosin (Flomax) to aid with proper bladder emptying. However, he has stopped taking the medication as he believes it caused erectile dysfunction, an experience he has also had with a statin medication. Despite not taking tamsulosin, he feels he is emptying his bladder adequately and only experiences nocturia once per night. In terms of prostate health, his last PSA was performed two years ago on 11/09/2022, with a result of 1.01. Results - Labs: - PSA (11/09/2022): 1.01. - Urinalysis (current visit): Positive for blood. - Imaging and Diagnostics: - Renal ultrasound (05/07/2025): Normal, with no evidence of recurrent renal calculi. - Bladder scan PVR - 19 mL. Plan 1. Nephrolithiasis - Follow-up on the renal ultrasound from 05/07/2025, which was normal with no recurrent renal calculi. - No active intervention is required at this time. 2. Microscopic Hematuria - Urinalysis showed a small amount of blood in the urine. - A cystoscopy will be scheduled to visually inspect the bladder. - The procedure will be performed with lidocaine for local anesthesia. - Valium will be prescribed for the patient's anxiety, to be taken on the day of the procedure. 3. Prostate Cancer Screening - The patient is due for PSA screening, with his last test being two years ago. - An order will be placed for a PSA lab test. - The patient will complete the fasting lab work tomorrow morning. 4. Lower Urinary Tract Symptoms - The patient has discontinued tamsulosin due to side effects but reports adequate bladder emptying and nocturia once per night. - A bladder scan will be performed in the office today to check post-void residual. 06/13/24--Byron was last seen in the office 11/10/2022 history of kidney stones On tamsulosin for BPH. States he is doing well. Bladder scan PVR- 15 mL. Continue tamsulosin. Will monitor with renal US and PSA screening. Will call for any abnormal results otherwise follow up in 9 months. Last PSA in chart PSA results reviewed--11/09/22--1.01. 08/23/22--Resolved right hydronephrosis and perinephric fat stranding from June 2022 exam. Right UPJ stone no longer seen. Byron is a 62-year-old male who presents to the office for discussion of 24- hour urine collection test and PSA results. 08/10/22-- Byron is a 62-year-old gentleman who is here as a FU for kidney stones. The patient is on medical marijuana for anxiety. PMH signifcant for CAD, nicotine dependent here for fu, he is status post ureteroscopy, stone not visualized, inflammatory changes noted. He states he has been doing well post procedure. He is drinking more water, cut out soda. AUA symptom score completed and reviewed today (8) - minimal LUTS Evaluation today: Urinalysis - no signs of infection. Plan: Metabolic workup 24 hour urine collection, PSA screening, SLIME on FU OV: 07/22/22--Initial visit - The patient stated he was in the emergency room 07/11/22 with right flank and right-sided abdominal pain. Discussed CT imaging, 07/11/2022- noted a 4 mm right UPJ stone with mild hydronephrosis. He denies nausea vomiting. Review of chart: 11/10/22--HPI as above also: The patient is S/P cystoscopy and right ureteroscopy on 07/26/22. He is here for follow-up for PSA screening and discussion of 24-hour urine collection test results. The patient did not underwent 24-hour urine collection test result as he did not get the kit. States consuming adequate amount of water and has reduced soda intake. PSA results reviewed--11/09/22--1.01. Evaluation today--Blood: 1+, leukocytes: negative. Bladder scan PVR: 0 mL. On exam: smooth and no suspicious nodules palpated. Plan: 24-hour urine collection test was reordered. Continue tamsulosin 0.4 mg QD. Follow-up after 9 months. [facility] Medical History COPD (chronic obstructive pulmonary disease) Smoking Mixed hyperlipidemia Essential hypertension Atherosclerotic cardiovascular disease Surgical History Previous back surgery Stented coronary artery History of cardiac catheterization Family History Father Hypertension Coronary artery disease Mother No problems noted. Social History Alcohol intake: never Patient Tobacco Use Status: Current everyday Tobacco user Tobacco use type: Cigarette Cigarette Packs Per Day: 1 Cigarettes Per Day: 20.0 Years Smoked: 50 Substance Use Type: Marijuana Review of Systems Const All systems reviewed & are unremarkable except as noted in HPI and below Reports no additional complaints Eyes Reports no additional complaints ENT Reports no additional complaints Card Reports no additional complaints Resp Reports no additional complaints GI Reports no additional complaints Reports as per HPI Musc Reports no additional complaints Skin/Breast Reports system reviewed and no additional complaints, except as documented Neuro Reports no additional complaints Psych Reports no additional complaints Endo Reports no additional complaints Bony/Lymph Reports no additional complaints Aller/Immun Reports no additional complaints Office Procedures Post Void Residual Post Residual Void Post Void Residual (PVR): 19 [id number]-[id number] Void Residual by ultrasound Results AMB Urinalysis, Automated UA Leukoctes 0 Artur/uL Last Edit by JANETTE Garcia on 05/16/25 09:27 UA Nitrite Negative Last Edit by JANETTE Garcia on 05/16/25 09:27 UA Urobilinogen 0.2 mg/dL Last Edit by Danika Abdi, RMA on 05/16/25 09:2 7 UA Protein 30 mg/dL Last Edit by Danika Abdi, RMA on 05/16/25 09:27 UA pH 6.0 Last Edit by Danika Abdi, RMA on 05/16/25 09:27 UA Blood 25 Gerry/uL Last Edit by Danika Abdi, RMA on 05/16/25 09:27 UA Specific Chelan 1.030 Last Edit by Danika Abdi, RMA on 05/16/25 09: 27 UA Ketone Negative Last Edit by Danika Abdi, RMA on 05/16/25 09:27 UA Bilirubin 0 mg/dL Last Edit by Danika Abdi, RMA on 05/16/25 09:27 UA Glucose 0 mg/dL Last Edit by Danika Abdi, RMA on 05/16/25 09:27 Results Reviewed Results Reviewed: Laboratory Last Values Urine pH (Auto) 6.0 05/16/25 09:25 Specific Chelan (Auto) 1.030 05/16/25 09:25 Urine Protein (Auto) 30 mg/dL 05/16/25 09:25 Glucose (UA)(Auto) 0 mg/dL 05/16/25 09:25 Urine Ketones (Auto) Negative 05/16/25 09:25 Urine Blood (Auto) 25 Gerry/uL 05/16/25 09:25 Urine Nitrite (Auto) Negative 05/16/25 09:25 Urine Bilirubin (Auto) 0 mg/dL 05/16/25 09:25 Urine Urobilinogen (Auto) 0.2 mg/dL 05/16/25 09:25 Leukocyte Esterase (Auto) 0 Artur/uL 05/16/25 09:25 Date of Service: 05/07/25 US renal with Color Doppler Comparison: None Findings: Right kidney normal size and echotexture, 10.4 cm length. No hydronephrosis, calculus or mass. Normal color flow. Left kidney normal size and echotexture, 11.0 cm length. No hydronephrosis, calculus or mass. Normal color flow. Impression: 1. Normal renal ultrasound. Date of Service: 08/23/22 CT ABDOMEN AND PELVIS WITHOUT CONTRAST CLINICAL INFORMATION: Right ureteral stone COMPARISON: Previous CT of the abdomen and pelvis June 2022 TECHNIQUE: Multidetector volumetric imaging was performed from the superior aspect of the liver through the pubic symphysis. Sagittal and coronal reformatted images were obtained on the technologist's workstation. This CT examination was performed using dose optimization techniques as appropriate, variously including the following: *Automated exposure control *Adjustment of mA and/or kV according to patient size (this includes techniques or standardized protocols for targeted exams where dose is matched to indication/reason for exam; i.e. extremities or head) *Use of iterative reconstruction technique DLP: 484 mGy-cm FINDINGS: LUNG BASES: The visualized lung bases are unremarkable. LIVER, GALLBLADDER, AND BILIARY TREE: The liver is normal in size, shape, and attenuation. No focal hepatic lesion or biliary ductal dilatation is present. The gallbladder is unremarkable with no evidence of radiopaque gallstones, gallbladder wall thickening, or obvious pericholecystic inflammatory changes. PANCREAS: Unremarkable. SPLEEN: Unremarkable. ADRENAL GLANDS: Unremarkable. KIDNEYS AND URETERS: The kidneys are normal in size, shape, and attenuation. No hydronephrosis, hydroureter, or calculi seen. No perinephric stranding. Previously identified right hydronephrosis, perinephric fat stranding and right EJ stone on June 2022 exam no longer seen. BLADDER: Not optimally distended. Is difficult to exclude diffuse bladder wall thickening. GASTROINTESTINAL TRACT: The small and large bowel are unremarkable. The appendix is unremarkable. ABDOMINAL WALL: No significant hernia is appreciated. LYMPH NODES: Small umbilical hernia containing fat. VASCULAR: Atherosclerotic disease. PELVIC VISCERA: Unremarkable. OSSEOUS STRUCTURES: Degenerative changes of the spine and hip joints. IMPRESSION: Unremarkable exam. Resolved right hydronephrosis and perinephric fat stranding from June 2022 exam. Right UPJ stone no longer seen. Date of Service: 07/11/22 EXAMINATION: CT ABDOMEN AND PELVIS WITHOUT CONTRAST? CLINICAL INFORMATION: Right flank pain? COMPARISON: FINDINGS: LUNG BASES: The visualized lung bases are unremarkable.? LIVER, GALLBLADDER, AND BILIARY TREE: The liver is normal in size, shape, and attenuation. No focal hepatic lesion or biliary ductal dilatation is present. The gallbladder is unremarkable with no evidence of radiopaque gallstones, gallbladder wall thickening, or obvious pericholecystic inflammatory changes.? PANCREAS: Unremarkable.? SPLEEN: Unremarkable.? ADRENAL GLANDS: Unremarkable.? KIDNEYS AND URETERS: Right hydronephrosis from a 4 mm right EJ stone. Right perinephric fat stranding. This is probably related to backflow of urine. Differential would include infection. Normal left kidney. BLADDER: Unremarkable.? GASTROINTESTINAL TRACT: The small and large bowel are unremarkable. The appendix is unremarkable.? ABDOMINAL WALL: Small umbilical hernia containing fat. LYMPH NODES: Normal. VASCULAR: Atherosclerotic disease. PELVIC VISCERA: Unremarkable.? OSSEOUS STRUCTURES: Degenerative changes of the spine and hip joints. IMPRESSION: Mild right hydronephrosis from a 4 mm right UPJ stone. Significant right perinephric fat stranding. This is probably related to plaque flow of urine. Differential would include infection. Clinical correlation recommended. Assessment & Plan Assessment & Plan (1) Screening PSA (prostate specific antigen): Code(s): Z12.5 - Encounter for screening for malignant neoplasm of prostate Category: Medical (2) History of kidney stones: Code(s): Z87.442 - Personal history of urinary calculi Category: Medical (3) Microscopic hematuria: Code(s): R31.29 - Other microscopic hematuria Category: Medical (4) Nicotine dependence: Code(s): F17.200 - Nicotine dependence, unspecified, uncomplicated Category: Medical Plan Plan 1. Nephrolithiasis - Follow-up on the renal ultrasound from 05/07/2025, which was normal with no recurrent renal calculi. - No active intervention is required at this time. 2. Microscopic Hematuria- Nicotine dependence, comorbidity, - urine for cytology - A cystoscopy will be scheduled to visually inspect the bladder. - The procedure will be performed with lidocaine for local anesthesia. - Valium will be prescribed for the patient's anxiety, to be taken on the day of the procedure. 3. Prostate Cancer Screening - The patient is due for PSA screening, with his last test being two years ago. - An order will be placed for a PSA lab test. - The patient will complete the fasting lab work tomorrow morning. 4. Lower Urinary Tract Symptoms - The patient has discontinued tamsulosin due to side effects but reports adequate bladder emptying and nocturia once per night. - A bladder scan will be performed in the office today to check post-void residual. Orders: Orders PSA,Total (Free>4and<10) Today Z12.5 - Encounter for screening for malignant neoplasm of prostate AMB Urinalysis Automated Today Z13.9 - Encounter for screening, unspecified AMB Post Void Residual by ultrasound Today N40.1 - Benign prostatic hyperplasia with lower urinary tract symptoms Urine Cytology Today F17.200 - Nicotine dependence, unspecified, uncomplicated Medications: Discontinued tamsulosin Discontinued Reason: Patient no longer taking 0.4 mg PO BEDTIME 90 caps 3RF Patient Instructions: The patient had an opportunity to ask questions regarding treatment plan. The patient expressed understanding and agreement with the above treatment plan. The patient is aware they should contact our office by phone for worsening of their current condition or the appearance of new symptoms. Compliance is encouraged with any medications and followup testing that is ordered. It is a privilege to be allowed the opportunity to participate in the urologic care of your patient. If you have any questions or concerns regarding treatment for the above conditions please do not hesitate to contact me. The office telephone contact is [phone]. This note is constructed in part using voice recognition software. While every effort has been made to ensure accuracy data sciences director errors may have been included. Yours sincerely, Brooke Gore MD Scribe Plan - Not visible on output: Patient was informed and verbally consented to the use of an ambient scribe for clinic note documentation during this visit. Coding Level of Care Code Est Pt Level 4 (80904) Add On Problem Visit Only Diagnoses Screening PSA (prostate specific antigen) Z12.5 History of kidney stones Z87.442 Microscopic hematuria R31.29 Nicotine dependence F17.200 CPT Codes Post Residual Void - PVR CPT Code: 81836-Ophv Void Residual by ultrasound ([id number])
== END 2025-05-16 10:06 | disposition home or self-care (01) ==
LOC: HO.HUSH 08:41
PROVIDERS: PCP Urology; Visit Provider Urology
DX: Z12.5 Encounter for screening for malignant neoplasm of prostate (principal); Z87.442 Personal history of urinary calculi; R31.29 Other microscopic hematuria; F17.200 Nicotine dependence, unspecified, uncomplicated; Z13.9 Encounter for screening, unspecified
CPT/HCPCS: 99214; G2211